=== PATIENT | female | born 1990 | race Hispanic/Latino ===

== ENCOUNTER 2018-02-17 18:17 | Emergency (ER) | payer SELFPAY ==
[2018-02-17 20:06] LABS: Urine Blood TRACE (NEG); Urine Glucose NEGATIVE (NEG); Urine Protein NEGATIVE (NEG); Urine Specific Gravity 1.015 (1.005-1.030)
[2018-02-17 20:06] LABS: Urine Specific Gravity 1.015 (1.005-1.030)
[2018-02-17 20:18] LABS: Absolute Lymphocytes (CBC) 2.7 K/uL (0.7-4.9); Absolute Monocytes 0.8 K/uL (0.1-1.3); Absolute Neutrophil 8.4 K/uL (1.8-8.0); Basophils % 0.3 % (0-1.3); Hematocrit 40.3 % (36.0-45.0); Lymphocytes % 22.2 % (15.3-44.8); MCH 31.8 pg (27.0-35.0); MCV 93.2 fL (80-100); MPV 7.9 fL (7.6-11.3); Monocytes % 6.3 % (3.3-12.3); RBC Red Blood Cell Count 4.32 M/uL (3.86-4.86)
[2018-02-17 20:38] LABS: Albumin 3.8 g/dL (3.4-5.0); Bilirubin Direct 0.1 mg/dL (0-0.2); Bilirubin Total 0.2 mg/dL (0.2-1.0); Potassium 3.6 mmol/L (3.5-5.1); Protein, Total 7.7 g/dL (6.4-8.2)
--- NOTE | 2018-02-17 21:46 | RAD REPORT ---
EXAM DESCRIPTION: CTAbdomen Pelvis W Contrast - 02/17/2018 9:38 pm CLINICAL HISTORY: Abdominal pain. left lower abdominal pain COMPARISON: No comparisons TECHNIQUE: Biphasic CT imaging of the abdomen and pelvis was performed with 100 ml non-ionic IV cont rast. All CT scans are performed using dose optimization technique as appropriate and may include automated exposure control or mA/KV adjustment according to patient size. FINDINGS: The lung bases are clear. The liver, spleen, pancreas, adrenal glands and kidneys are within normal limits. No bowel obstruction, free air, free fluid or abscess. The appendix is normal. No evidence of signi ficant lymphadenopathy. No suspicious bony findings. IMPRESSION: No acute intra-abdominal or pelvic finding.
--- NOTE | 2018-02-17 21:48 | RAD REPORT ---
EXAM DESCRIPTION: US - Pelvis Complete - 02/17/2018 9:38 pm CLINICAL HISTORY: pelvic pain Pelvic pain. COMPARISON: Transvaginal Study Probe dated 10/06/2016 FINDINGS: The uterus has a somewhat heterogenous appearance. The uterus measures 9.2 x 6.4 x 5.2 cm. The endometrial stripe measures 7 mm, normal. Both ovaries are normal in size, shape and echotexture. The right ovary measures 3.3 x 2.1 x 1.7 cm. The left ovary measures 2.8 x 2.6 x 2.5 cm. 3.6 x 1.5 cm right paraovarian cyst is present. No adne xal masses. Normal Doppler blood flow was demonstrated to both ovaries. Trace free fluid is seen about the fundus of the uterus. IMPRESSION: No acute abnormality is detected.
[2018-02-17] MEDS ORDERED: AZITHROMYCIN 250 MG TAB ONE (21:49)
[2018-02-17] MEDS ORDERED: CEFTRIAXONE 250 MG/VIAL ONE (21:49)
[2018-02-17] MEDS ORDERED: KETOROLAC 30 MG/ML INJ ONE (21:49)
--- NOTE | 2018-02-17 22:10 | EDPHYS ---
Physician Documentation [facility] Name: Twila Heath Age: 27 yrs Sex: Female : 1990 Arrival Date: 02/17/2018 Time: 18:19 Bed 19 Private MD: None, None ED Physician Hung Skaggs HPI: 02/17 19:38 This 27 yrs old Female presents to ER via Ambulatory with complaints of jmm Abdominal Pain. 19:38 The patient presents with abdominal pain in the lower abdomen. Onset: The jmm symptoms/episode began/occurred gradually, 3 day(s) ago. The symptoms radiate to left back. Associated signs and symptoms: Pertinent positives: vaginal discharge, Pertinent negatives: nausea and vomiting, diarrhea. This is a 27 year old female with no chronic medical conditions that presents to the ED with left lower abdominal pain for 3 days with radiation to the back, patient admits to increased vaginal discharge. Last LMP 1 month prior. Denies vomiting or diarrhea. . 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 - Social history:: Smoking status: Patient/guardian denies using tobacco. - Ebola Screening: : No symptoms or risks identified at this time. ROS: 19:38 Constitutional: Negative for fever, chills, and weight loss, Cardiovascular: Negative jmm for chest pain, palpitations, and edema, Respiratory: Negative for shortness of breath, cough, wheezing, and pleuritic chest pain. 19:38 Abdomen/GI: Positive for abdominal pain. 19:38 : Positive for pelvic pain, vaginal discharge. 19:38 All other systems are negative. Exam: 19:38 Head/Face: atraumatic. Eyes: EOMI, no conjunctival erythema appreciated ENT: Moist jmm Mucus Membranes Neck: Trachea midline, Supple Chest/axilla: Normal chest wall appearance and motion. Cardiovascular: Regular rate and rhythm. No edema appreciated Respiratory: Normal respirations, no respiratory distress appreciated 19:38 Constitutional: The patient appears in no acute distress, alert, awake. 19:38 Abdomen/GI: Inspection: abdomen appears normal, Bowel sounds: normal, Palpation: soft, mild abdominal tenderness, in the left lower quadrant. 19:38 Back: CVA tenderness, is absent, is noted bilaterally. 19:38 Musculoskeletal/extremity: ROM: intact in all extremities. 19:38 Skin: Appearance: Color: normal in color. 19:38 Neuro: Orientation: is normal, Mentation: is normal, Memory: is normal. 19:38 Psych: Behavior/mood is pleasant, cooperative. Vital Signs: 18:33 BP 116 / 70; Pulse 81; Resp 18 S; Temp 98.0(TE); Pulse Ox 100% on R/A; Weight 79.38 kg aa5 (R); Height 5 ft. 4 in. (162.56 cm) (R); Pain 5/10; 20:15 BP 113 / 70; Pulse 67; Resp 14; Pulse Ox 100% ; bp 20:45 BP 105 / 94; Pulse 76; Resp 16; Pulse Ox 100% ; bp 21:15 BP 110 / 76; Pulse 77; Resp 16 S; Pulse Ox 100% on R/A; cc3 22:10 BP 112 / 72; Pulse 74; Resp 14 S; Pulse Ox 100% on R/A; Pain 0/10; cc3 18:33 Body Mass Index 30.04 (79.38 kg, 162.56 cm) aa5 MDM: 19:36 Patient medically screened. [facility] 22:07 Data reviewed: vital signs, nurses notes. Data interpreted: Pulse oximetry: on room air jmm is 100 %. Interpretation: normal. Counseling: I had a detailed discussion with the patient and/or guardian regarding: the historical points, exam findings, and any diagnostic results supporting the discharge/admit diagnosis, radiology results, the need for outpatient follow up, to return to the emergency department if symptoms worsen or persist or if there are any questions or concerns that arise at home. Response to treatment: the patient's symptoms have markedly improved after treatment. 02/17 19:37 Order name: Basic Metabolic Panel; Complete Time: 20:47 [facility] 02/17 19:37 Order name: CBC with Diff; Complete Time: 20:19 [facility] 02/17 19:37 Order name: Creatinine for Radiology; Complete Time: 20:47 [facility] 02/17 19:37 Order name: Hepatic Function; Complete Time: 20:47 [facility] 02/17 19:37 Order name: Lipase; Complete Time: 20:47 [facility] 02/17 19:57 Order name: Urine Dipstick--Ancillary (enter results); Complete Time: 20:19 ms 02/17 19:37 Order name: US Pelvis Complete; Complete Time: 22:07 [facility] 02/17 19:37 Order name: CT Abd/Pelvis - W/Contrast; Complete Time: 22:07 [facility] 02/17 19:59 Order name: Urine --Ancillary (enter results); Complete Time: 20:19 ms 02/17 20:58 Order name: Wet Prep bp 02/17 20:58 Order name: GC (GONORR/CHLAMYDIA) Probe bp 02/17 20:59 Order name: Wet Prep; Complete Time: 21:33 EDMS 02/17 20:59 Order name: GC (Ramu/Chl) Probe CX/URE EDMA 02/17 19:37 Order name: IV Saline Lock; Complete Time: 20:02 [facility] 02/17 19:37 Order name: Labs collected and sent; Complete Time: 20:02 [facility] 02/17 19:38 Order name: Urine Dipstick-Ancillary (obtain specimen); Complete Time: 20:01 bp 02/17 19:38 Order name: Urine Test (obtain specimen); Complete Time: 20:01 bp Administered Medications: 21:40 Drug: Rocephin (cefTRIAXone) 250 mg Route: IM; Site: right deltoid; bp 22:00 Follow up: Response: No adverse reaction cc3 21:40 Drug: AZITHromycin 1 grams Route: PO; bp 22:00 Follow up: Response: No adverse reaction cc3 21:40 Drug: Ketorolac 30 mg Route: IVP; Site: right forearm; bp 22:00 Follow up: Response: No adverse reaction; Pain is decreased cc3 Disposition: 02/18 06:44 Co-signature as Attending Physician, Hung Skaggs MD I agree with the assessment and veronika plan of care. Disposition: 02/17/18 22:09 Discharged to Home. Impression: Unspecified ovarian cysts, Abdominal and pelvic pain. - Condition is Stable. - Discharge Instructions: Ovarian Cyst, Pelvic Pain, Female. - Prescriptions for Ibuprofen 800 mg Oral Tablet - take 1 tablet by ORAL route every 8 hours As needed take with food; 30 tablet. Tramadol 50 mg Oral Tablet - take 1 tablet by ORAL route every 8 hours as needed; 12 tablet. - Medication Reconciliation Form, Thank You Letter, Antibiotic Education, Prescription Opioid Use form. - Follow up: Nehemias Kearns MD; When: 2 - 3 days; Reason: Recheck today's complaints, Continuance of care, Re-evaluation by your physician. Signatures: Dispatcher [employer] EDMS Hung Skaggs MD MD cha Mickail, Joel, PA PA jmm Calderon, Audri, RN RN aa5 Rodolfo Middleton RN RN bp Rachel Fernandez cc3 Corrections: (The following items were deleted from the chart) 02/17 22:30 22:09 02/17/2018 22:09 Discharged to Home. Impression: Unspecified ovarian cysts; cc3 Abdominal and pelvic pain. Condition is Stable. Forms are Medication Reconciliation Form, Thank You Letter, Antibiotic Education, Prescription Opioid Use. Follow up: Nehemias Kearns; When: 2 - 3 days; Reason: Recheck today's complaints, Continuance of care, Re-evaluation by your physician. hank
--- NOTE | 2018-02-17 22:10 | ER ---
Nurse's Notes [facility] Name: Twila Heath Age: 27 yrs Sex: Female : 1990 Arrival Date: 02/17/2018 Time: 18:19 Bed 19 Private MD: None, None Diagnosis: Unspecified ovarian cysts;Abdominal and pelvic pain Presentation: 02/17 18:32 Presenting complaint: Patient states: lower abd pain radiating to left low back x 3 aa5 days ago. Pt also reports nausea and diarrhea,denies vomiting. Transition of care: patient was not received from another setting of care. Onset of symptoms was January 2018. Risk Assessment: Do you want to hurt yourself or someone else? Patient reports no desire to harm self or others. Initial Sepsis Screen: Does the patient meet any 2 criteria? No. Patient's initial sepsis screen is negative. Does the patient have a suspected source of infection? No. Patient's initial sepsis screen is negative. Care prior to arrival: None. 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 - Social history:: Smoking status: Patient/guardian denies using tobacco. - Ebola Screening: : No symptoms or risks identified at this time. Screenin:02 Abuse screen: Denies threats or abuse. Denies injuries from another. Nutritional bp screening: No deficits noted. Tuberculosis screening: No symptoms or risk factors identified. Fall Risk None identified. Assessment: 19:30 General: Appears in no apparent distress. comfortable, Behavior is calm, cooperative, bp appropriate for age. Pain: Complains of pain in left lower quadrant. Neuro: Level of Consciousness is awake, alert, obeys commands, Oriented to person, place, time, situation, Appropriate for age. Cardiovascular: No deficits noted. Respiratory: Airway is patent Respiratory effort is even, unlabored, Respiratory pattern is regular, symmetrical. GI: Bowel sounds present X 4 quads. Abd is soft X 4 quads Reports lower abdominal pain, diarrhea. : No signs and/or symptoms were reported regarding the genitourinary system. EENT: No deficits noted. Derm: No deficits noted. Musculoskeletal: Circulation, motion, and sensation intact. Range of motion: intact in all extremities. 21:25 Reassessment: PT TO CT WITH FINGERPRINT TECHNICIAN. bp 22:20 Reassessment: Patient appears in no apparent distress at this time. Patient and/or cc3 family updated on plan of care and expected duration. Pain level reassessed. Patient is alert, oriented x 3, equal unlabored respirations, skin warm/dry/pink. Patient discharged home by SUN Pantoja with prescription given. IV cannula removed and patient left ER vitally stable and ambulatory. Patient denies pain at this time. Patient states feeling better. Vital Signs: 18:33 BP 116 / 70; Pulse 81; Resp 18 S; Temp 98.0(TE); Pulse Ox 100% on R/A; Weight 79.38 kg aa5 (R); Height 5 ft. 4 in. (162.56 cm) (R); Pain 5/10; 20:15 BP 113 / 70; Pulse 67; Resp 14; Pulse Ox 100% ; bp 20:45 BP 105 / 94; Pulse 76; Resp 16; Pulse Ox 100% ; bp 21:15 BP 110 / 76; Pulse 77; Resp 16 S; Pulse Ox 100% on R/A; cc3 22:10 BP 112 / 72; Pulse 74; Resp 14 S; Pulse Ox 100% on R/A; Pain 0/10; cc3 18:33 Body Mass Index 30.04 (79.38 kg, 162.56 cm) aa5 ED Course: 18:19 Patient arrived in ED. mr 18:19 None, None is Private Physician. mr 18:32 Triage completed. aa5 18:32 Arm band placed on. aa5 19:13 Emmanuel Pantoja PA is PHCP. [facility] 19:13 Hung Skaggs MD is Attending Physician. [facility] 19:16 Rodolfo Middleton, RN is Primary Nurse. bp 20:02 Patient has correct armband on for positive identification. Placed in gown. Bed in low bp position. Call light in reach. Side rails up X2. 20:02 Inserted saline lock: 22 gauge in right forearm, using aseptic technique. Blood bp collected. 20:06 Radiology exam delayed due to pelvic exam. cy 20:49 Ultrasound completed. Patient tolerated well. Notified DIRECTOR CAREER/SUN michel. cy 21:24 Wet Prep Sent. bp 21:24 GC (GONORR/CHLAMYDIA) Probe Sent. bp 21:38 US Pelvis Complete In Process Unspecified. EDMS 21:38 CT Abd/Pelvis - W/Contrast In Process Unspecified. EDMS 21:38 CT completed. Patient tolerated procedure well. Patient moved back from CT. kc3 22:08 Nehemias Kearns MD is Referral Physician. [facility] 22:20 No provider procedures requiring assistance completed. IV discontinued, intact, cc3 bleeding controlled, No redness/swelling at site. Pressure dressing applied. Administered Medications: 21:40 Drug: Rocephin (cefTRIAXone) 250 mg Route: IM; Site: right deltoid; bp 22:00 Follow up: Response: No adverse reaction cc3 21:40 Drug: AZITHromycin 1 grams Route: PO; bp 22:00 Follow up: Response: No adverse reaction cc3 21:40 Drug: Ketorolac 30 mg Route: IVP; Site: right forearm; bp 22:00 Follow up: Response: No adverse reaction; Pain is decreased cc3 Outcome: 22:09 Discharge ordered by . jmm 22:20 Discharged to home ambulatory. cc3 22:20 Condition: stable 22:20 Discharge instructions given to patient, Instructed on discharge instructions, follow up and referral plans. medication usage, Demonstrated understanding of instructions, follow-up care, medications, Prescriptions given X 2. 22:30 Patient left the ED. cc3 Signatures: Dispatcher [employer] EDMS Emmanuel Pantoja PA PA jmm Rivera, Maria mr Calderon, Audri, RN RN aa5 Rodolfo Middleton RN RN bp Yong, Chheannith cy Campbell, Kim kc3 Rachel Fernandez cc3
[2018-02-17 23:46] VITALS: TEMP 98; O2SAT 100
[2018-02-17 23:51] VITALS: BP 112/72
[2018-02-21 10:56] LABS: C.trachomatis RNA,TMA Not Detected (Not Detected)
== END 2018-02-17 22:30 | disposition home or self-care (01) ==
LOC: ER 18:17
DX: N83.209 Unspecified ovarian cyst, unspecified side (principal)
CPT/HCPCS: 36415; 74177; 76856; 80048; 80076; 81003; 81025; 83690; 85025; 87210; 87490; 87590; 96372; 96374; 99284; J0696; Q9967

== ENCOUNTER 2019-02-16 06:06 | Emergency (ER) | payer OTHER ==
[2019-02-16] MEDS ORDERED: AMOX/K CLAV 875 MG TAB ONE (06:36)
--- NOTE | 2019-02-16 06:39 | ER ---
Nurse's Notes [facility] Name: Twila Heath Age: 28 yrs Sex: Female : 1990 Arrival Date: 02/16/2019 Time: 06:08 Bed 14 Private MD: Diagnosis: Acute tonsillitis; related conditions, unspecified, second trimester Presentation: 02/16 06:15 Presenting complaint: Patient states: cough, sore throat, \T\ nupur ear pain for past aa1 several days. Transition of care: patient was not received from another setting of care. Onset of symptoms was February 11, 2019. Risk Assessment: Do you want to hurt yourself or someone else? Patient reports no desire to harm self or others. Initial Sepsis Screen: Does the patient meet any 2 criteria? No. Patient's initial sepsis screen is negative. Does the patient have a suspected source of infection? No. Patient's initial sepsis screen is negative. Care prior to arrival: None. 06:15 Method Of Arrival: Ambulatory aa1 06:15 Acuity: CLINT 4 aa1 Triage Assessment: 06:15 General: Appears in no apparent distress. comfortable, Behavior is calm, cooperative, aa1 appropriate for age. Historical: - Allergies: 06:27 No Known Allergies; aa1 - Home Meds: 06:27 Vitamin Oral tab 1 tab once daily [Active]; aa1 - PMHx: 06:27 None; aa1 - PSHx: 06:27 None; aa1 - Immunization history:: Flu vaccine is not up to date. - Social history:: Smoking status: Patient/guardian denies using tobacco. - Ebola Screening: : Patient denies exposure to infectious person Patient denies travel to an Ebola-affected area in the 21 days before illness onset. Screenin:49 Abuse screen: Denies threats or abuse. Nutritional screening: No deficits noted. jb4 Tuberculosis screening: No symptoms or risk factors identified. Fall Risk None identified. Assessment: 06:40 General: Appears in no apparent distress. comfortable, Behavior is calm, cooperative, jb4 appropriate for age. Pain: Complains of pain in throat. Pain does not radiate. Pain currently is 7 out of 10 on a pain scale. Neuro: Level of Consciousness is awake, alert, obeys commands, Oriented to person, place, time, situation. Cardiovascular: Patient's skin is warm and dry. Respiratory: Airway is patent Respiratory effort is even, unlabored, Respiratory pattern is regular, symmetrical. GI: No deficits noted. No signs and/or symptoms were reported involving the gastrointestinal system. : No deficits noted. No signs and/or symptoms were reported regarding the genitourinary system. EENT: Reports pain in throat. Derm: Skin is intact, Skin is pink, warm \T\ dry. Musculoskeletal: Circulation, motion, and sensation intact. Range of motion: intact in all extremities. 06:49 Reassessment: Patient appears in no apparent distress at this time. Patient and/or jb4 family updated on plan of care and expected duration. Pain level reassessed. Patient is alert, oriented x 3, equal unlabored respirations, skin warm/dry/pink. PT verbalized understanding of d/c and follow up instructions. Ambulated out of ED with significant other. Vital Signs: 06:15 BP 107 / 65; Pulse 94; Resp 16; Temp 97.8; Pulse Ox 99% ; Weight 85.73 kg; Height 5 ft. aa1 4 in. (162.56 cm); Pain 7/10; 06:15 Body Mass Index 32.44 (85.73 kg, 162.56 cm) aa1 Vitals: 06:46 Heart Tones 150. jb4 ED Course: 06:08 Patient arrived in ED. ds1 06:10 Hung Skaggs MD is Attending Physician. veronika 06:15 Arm band placed on right wrist. Patient placed in an exam room, on a stretcher. aa1 06:22 Triage completed. aa1 06:31 Alfa Adame RN is Primary Nurse. jb4 06:37 Thom Whyte MD is Referral Physician. veronika 06:49 Patient has correct armband on for positive identification. Bed in low position. Call jb4 light in reach. Side rails up X 1. Pulse ox on. NIBP on. 06:49 No provider procedures requiring assistance completed. Patient did not have IV access jb4 during this emergency room visit. Administered Medications: 06:37 Drug: Augmentin 875 mg Route: PO; jb4 06:50 Follow up: Response: No adverse reaction jb4 Outcome: 06:38 Discharge ordered by . veronika 06:49 Discharged to home ambulatory, with significant other. jb4 06:49 Condition: stable 06:49 Discharge instructions given to patient, significant other, Instructed on discharge instructions, follow up and referral plans. medication usage, Demonstrated understanding of instructions, follow-up care, medications, Prescriptions given X 2. 06:50 Patient left the ED. jb4 Signatures: Rosalba Arteaga, RN RN aa1 Hung Skaggs MD MD cha Sanford, Demi ds1 Alfa Adame RN RN jb4
--- NOTE | 2019-02-16 06:39 | EDPHYS ---
Physician Documentation [facility] Name: Twila Heath Age: 28 yrs Sex: Female : 1990 Arrival Date: 02/16/2019 Time: 06:08 Bed 14 Private MD: SHELBY Physician Hung Skaggs HPI: 02/16 06:28 This 28 yrs old Female presents to ER via Ambulatory with complaints of Ear veronika Pain, Sore Throat. 06:28 The patient presents with pain, swelling, tenderness. The complaints affect the chin. veronika Associated signs and symptoms: The patient has no apparent associated signs or symptoms. Historical: - Allergies: 06: No Known Allergies; aa1 - Home Meds: 06: Vitamin Oral tab 1 tab once daily [Active]; aa1 - PMHx: : None; aa1 - PSHx: : None; aa1 - Immunization history:: Flu vaccine is not up to date. - Social history:: Smoking status: Patient/guardian denies using tobacco. - Ebola Screening: : Patient denies exposure to infectious person Patient denies travel to an Ebola-affected area in the 21 days before illness onset. ROS: 06:29 Constitutional: Negative for fever, chills, and weight loss, Eyes: Negative for injury, veronika pain, redness, and discharge, Neck: Negative for injury, pain, and swelling, Cardiovascular: Negative for chest pain, palpitations, and edema, Respiratory: Negative for shortness of breath, cough, wheezing, and pleuritic chest pain, Back: Negative for injury and pain, : Negative for injury, bleeding, discharge, and swelling, MS/Extremity: Negative for injury and deformity, Skin: Negative for injury, rash, and discoloration, Neuro: Negative for headache, weakness, numbness, tingling, and seizure, Psych: Negative for depression, anxiety, suicide ideation, homicidal ideation, and hallucinations, Allergy/Immunology: Negative for hives, rash, and allergies, Endocrine: Negative for neck swelling, polydipsia, polyuria, polyphagia, and marked weight changes, Hematologic/Lymphatic: Negative for swollen nodes, abnormal bleeding, and unusual bruising. 06:29 ENT: Positive for sore throat. Exam: 06:29 Constitutional: This is a well developed, well nourished patient who is awake, alert, veronika and in no acute distress. Head/Face: Normocephalic, atraumatic. Eyes: Pupils equal round and reactive to light, extra-ocular motions intact. Lids and lashes normal. Conjunctiva and sclera are non-icteric and not injected. Cornea within normal limits. Periorbital areas with no swelling, redness, or edema. Neck: Trachea midline, no thyromegaly or masses palpated, and no cervical lymphadenopathy. Supple, full range of motion without nuchal rigidity, or vertebral point tenderness. No Meningismus. Chest/axilla: Normal chest wall appearance and motion. Nontender with no deformity. No lesions are appreciated. Cardiovascular: Regular rate and rhythm with a normal S1 and S2. No gallops, murmurs, or rubs. Normal PMI, no JVD. No pulse deficits. Respiratory: Lungs have equal breath sounds bilaterally, clear to auscultation and percussion. No rales, rhonchi or wheezes noted. No increased work of breathing, no retractions or nasal flaring. Abdomen/GI: Soft, non-tender, with normal bowel sounds. No distension or tympany. No guarding or rebound. No evidence of tenderness throughout. Back: No spinal tenderness. No costovertebral tenderness. Full range of motion. Skin: Warm, dry with normal turgor. Normal color with no rashes, no lesions, and no evidence of cellulitis. MS/ Extremity: Pulses equal, no cyanosis. Neurovascular intact. Full, normal range of motion. Neuro: Awake and alert, GCS 15, oriented to person, place, time, and situation. Cranial nerves II-XII grossly intact. Motor strength 5/5 in all extremities. Sensory grossly intact. Cerebellar exam normal. Normal gait. Psych: Awake, alert, with orientation to person, place and time. Behavior, mood, and affect are within normal limits. Vital Signs: 06:15 BP 107 / 65; Pulse 94; Resp 16; Temp 97.8; Pulse Ox 99% ; Weight 85.73 kg; Height 5 ft. aa1 4 in. (162.56 cm); Pain 7/10; 06:15 Body Mass Index 32.44 (85.73 kg, 162.56 cm) aa1 MDM: 06:11 Patient medically screened. [facility] 06:36 Data reviewed: vital signs, nurses notes. [facility] 02/16 06:28 Order name: FHT's; Complete Time: 06:44 [facility] Administered Medications: 06:37 Drug: Augmentin 875 mg Route: PO; jb4 06:50 Follow up: Response: No adverse reaction jb4 Disposition: 02/16/19 06:38 Discharged to Home. Impression: Acute tonsillitis, related conditions, unspecified, second trimester. - Condition is Stable. - Discharge Instructions: Tonsillitis, Tonsillitis, [id number]. - Prescriptions for Augmentin 875- 125 mg Oral Tablet - take 1 tablet by ORAL route every 12 hours for 10 days; 20 tablet. Benadryl 25 mg Oral Capsule - take 1 capsule by ORAL route every 6 hours As needed; 30 tablet. - Medication Reconciliation Form, Thank You Letter, Antibiotic Education, Prescription Opioid Use form. - Follow up: Private Physician; When: 2 - 3 days; Reason: Recheck today's complaints, Continuance of care, Re-evaluation by your physician. Follow up: Thom Whyte MD; When: 2 - 3 days; Reason: Recheck today's complaints, Continuance of care, Re-evaluation by your physician. - Problem is new. - Symptoms have improved. Signatures: Rosalba Arteaga RN RN aa1 Hung Skaggs MD MD cha Bryson, James, RN RN jb4 Corrections: (The following items were deleted from the chart) 06:50 06:38 02/16/2019 06:38 Discharged to Home. Impression: Acute tonsillitis; jb4 related conditions, unspecified, second trimester. Condition is Stable. Forms are Medication Reconciliation Form, Thank You Letter, Antibiotic Education, Prescription Opioid Use. Follow up: Private Physician; When: 2 - 3 days; Reason: Recheck today's complaints, Continuance of care, Re-evaluation by your physician. Follow up: Thom Whyte; When: 2 - 3 days; Reason: Recheck today's complaints, Continuance of care, Re-evaluation by your physician. Problem is new. Symptoms have improved. [facility]
[2019-02-16 07:05] VITALS: BP 107/65; TEMP 97.8; O2SAT 99
== END 2019-02-16 06:50 | disposition home or self-care (01) ==
LOC: ER 06:06
DX: O26.892 Other specified pregnancy related conditions, second trimester (principal); J03.90 Acute tonsillitis, unspecified
CPT/HCPCS: 99284

== ENCOUNTER 2019-06-13 04:04 | Inpatient (IN) | payer OTHER ==
--- OUTSIDE RECORDS SUMMARY | 2019-06-13 04:07 | XMS REPORT ---
:1990 [facility] Address [address] [place] [address] Dr. John [address] [place] [id number] Care Team Providers Name Role Phone Unavailable Unavailable Unavailable Problems This patient has no known problems. Allergies, Adverse Reactions, Alerts This patient has no known allergies or adverse reactions. Medications This patient has no known medications.
[2019-06-13] MEDS ORDERED: BUTORPHANOL 1 MG/ML INJ IV PRN (04:24)
[2019-06-13] MEDS ORDERED: Ringers Lactate 1,000 ML IV PRN (04:24)
[2019-06-13] MEDS ORDERED: METHYLERGONOVINE 0.2MG/ML AMP IM PRN (04:24)
[2019-06-13] MEDS ORDERED: CARBOPROST TROME 250 MCG/ML IM PRN (04:24)
[2019-06-13] MEDS ORDERED: PROMETHAZINE INJ 25 MG/ML AMP IM PRN (04:24)
[2019-06-13] MEDS ORDERED: MEPERIDINE HCL 25 MG/0.5 ML IV PRN (04:24)
[2019-06-13 04:38] VITALS: BMI 34.3
[2019-06-13] MEDS ORDERED: Ringers Lactate 1,000 ML IV SCH (05:00)
[2019-06-13] MEDS ORDERED: OXYTOCIN/LR 20 UNIT/1,000 ML BAG IV SCH ×2 (05:00→12:00)
[2019-06-13 05:12] LABS: Urine Appearance CLEAR; Urine Bilirubin NEGATIVE (NEG); Urine Blood NEGATIVE (NEG); Urine Color YELLOW; Urine Glucose NEGATIVE (NEG); Urine Protein NEGATIVE (NEG); Urine Specific Gravity 1.025 (1.005-1.030); Urine Urobilinogen 0.2 mg/dL (0.2-1.0)
[2019-06-13 05:14] LABS: Urine Microscopic Reflex ORDER UMIC
[2019-06-13 05:15] LABS: Absolute Lymphocytes (CBC) 2.9 K/uL (0.7-4.9); Basophils % 0.3 % (0-1.3); Hematocrit 34.6 % (36.0-45.0); Lymphocytes % 31.8 % (15.3-44.8); MPV 8.2 fL (7.6-11.3); RBC Red Blood Cell Count 3.92 M/uL (3.86-4.86)
[2019-06-13 05:40] LABS: Urine Bacteria 20-50 /HPF (<20); Urine Culture Reflex Order REFLEXED; Urine RBC <5 /HPF (NONE SEEN)
[2019-06-13 05:41] LABS: Urine Mucus 1+ /HPF (NONE SEEN)
[2019-06-13] MEDS ORDERED: ROPIVACAINE HCL 100 ML IV PRN (06:57)
[2019-06-13] MEDS ORDERED: ROPIVACAINE HCL 0.2% 20ML AMP IV ONE (06:58)
[2019-06-13] MEDS ORDERED: FENTANYL CITR 100 MCG/2 ML IV ONE (06:59)
[2019-06-13] MEDS ORDERED: LIDOCAINE 1% 20 ML MDV ONE (08:20)
[2019-06-13] MEDS ORDERED: Oxycodone HCl/Acetaminophen 1 TAB TAB PO PRN ×2 (11:48)
[2019-06-13] MEDS ORDERED: ACETAMINOPHEN 500 MG TAB PO PRN (11:48)
[2019-06-13] MEDS ORDERED: BISACODYL 10 MG RECTAL SUPP RECT PRN (11:48)
[2019-06-13] MEDS ORDERED: DIPHENHYDRAMINE 25 MG TAB/CAP PO PRN (11:48)
[2019-06-13] MEDS ORDERED: DOCUSATE NA/SENNA CONC 1 TAB PO PRN (11:48)
--- NOTE | 2019-06-13 12:12 | PREOPHP ---
Date of Admission: 06/13/2019 28-year-old 5, para 3, AB1, 39 weeks for induction. Patient is 3.5 cm, 50% effaced, vertex, -1 station. Rupture of membranes, clear fluid. Will be requesting epidural but is not even uncomfor table at this point. Anticipate rather rapid delivery once we get going. Full labor talk given to p atient and family. YESICA/SARATH Voice ID: [id number]
[2019-06-13] MEDS: IBUPROFEN 200 MG TAB PO PRN (14:35)
[2019-06-13 22:30] LABS: RPR (Rapid Plasma Reagin) NON-REACT (NON-REACT)
[2019-06-14] MEDS: IBUPROFEN 200 MG TAB PO PRN ×2 (04:10→12:12)
--- NOTE | 2019-06-14 07:50 | DS ---
Hospital Course: This is a 28-year-old 5, para 3, 39 weeks gestation, uneventful delivery of a 6 pounds, 5 pounds female, Apgars 9 and 9. No episiotomy. No laceration. Shabazz delivery of the placenta, which was examined and noted to be intact. 250 mL blood loss. Rh positive, immune to Rub renny. Negative beta strep screen. ; afebrile, ambulating and voiding. Lochia is normal. Patient requested tramadol on dismissal, we will give her 15 tablets. She has not had her Tdap immu nization during the . This has been discussed numerous times. She is offered the immunizat ion before she leaves if she chooses. No post-epidural problems. No complaints. Final Diagnoses: Term intrauterine at 39 weeks, vaginal delivery. Epidural anesthesia. I mmunization, Tdap offered. YESICA/SARATH Voice ID: [id number] Report ID: [id number]
--- NOTE | 2019-06-14 07:50 | OP ---
Surgeon: Thom Whyte MD 28-year-old 5, para 3, AB1, 39 weeks gestation, 3 to 3.5 cm with rupture of membranes this mo rning. Clear fluid. Patient went to an active labor pattern. At approximately 4.5 to 5 received ep idural anesthesia, which gave excellent effect during remainder of labor and delivery. Short second stage of 15 minutes or less. Spontaneous vaginal delivery of an estimated 6 pounds plus female s 9 and 9. No episiotomy. No lacerations worthy of Schultze suturing, Shabazz delivery of the placen ta. At 10 to 12 minutes after delivery, uterus contracted down well with IV drip Pitocin. Estimated blood loss 250 cc or less. Patient tolerated all procedures well. Rh positive, immune to Rubella. Negative beta strep screen. Final Diagnoses: Term intrauterine . Labor induction, vaginal delivery, epidural anesthesi a. YESICA/SARATH Voice ID: [id number] Report ID: [id number]
[2019-06-14 12:05] VITALS: BP 104/63; TEMP 97.3
[2019-06-14] MEDS ORDERED: Tdap (Diph,Pertuss(Acell),Tet Vac) 0.5 ML SYR IMVAC ONE ×2 (13:06→13:15)
[2019-06-16 04:06] LABS: HBsAG Nonreactive (Nonreactive)
== END 2019-06-14 13:40 | disposition home or self-care (01) | DRG 998 ==
LOC: 2ND-WC 04:04
PROVIDERS: ADMIT Specialist; ATTEND Specialist
PROC: 10E0XZZ Delivery of Products of Conception, External Approach (ICD-10-PCS; principal; 2019-06-13)
PROC: 10907ZC Drainage of Amniotic Fluid, Therapeutic from Products of Conception, Via Natural or Artificial Opening (ICD-10-PCS; 2019-06-13)
PROC: 00HU33Z Insertion of Infusion Device into Spinal Canal, Percutaneous Approach (ICD-10-PCS; 2019-06-13)
DX: O80 Encounter for full-term uncomplicated delivery (principal)
CPT/HCPCS: 36415; 81003; 81015; 85025; 86592; 86901; 87086; 87088; 87340; 90471; 90715; J2210; J2590; J2795; J3010; J7120

== ENCOUNTER 2021-09-03 09:17 | Emergency (ER) | payer OTHER ==
--- OUTSIDE RECORDS SUMMARY | 2021-09-03 09:19 | XMS REPORT | Continuity of Care Document ---
:1990 Author Organization [facility] t Address [address] [place] [address] Care Team Providers Name Role Phone ANENE Attending Clinician Unavailable DICLEMENTE Admitting Clinician Unavailable Payers Payer Name Policy Type Policy Number Effective Date Expiration Date [facility] [id number] 2019 [facility] MEDICAID 00:00:00 Problems This patient has no known problems. Allergies, Adverse Reactions, Alerts Allergy Allergy Status Severity Reaction(s) Onset Inactive Treating Comm ents Source Name Type Date Date Clinician NO KNOWN Drug Active [facility] ALLERGIE Class ity [facility] Medications This patient has no known medications. Procedures This patient has no known procedures. Encounters Start End Encounter Admission Attending Care Care Encounter Source Date/Time Date/Time Type Type Clinicians Facility Department ID 2021-03-19 Emergency [facility] [id number] [facility] 18:22:52 [facility] 2021-03-19 Outpatient P [facility] [id number] [facility] 17:49:20 [facility] 2019-11-29 2019-11-29 [id number] 15:20:00 15:20:00 EMMANUEL [facility] 2019-11-29 2019-11-29 Outpatient R [facility] [id number] Univers 08:00:00 08:00:00 [facility] 2019-11-15 2019-11-15 Outpatient R [facility] [id number] Univers 11:20:00 11:20:00 [id number] [facility] 2019-11-15 2019-11-15 [facility] [id number] Univers 11:20:00 11:20:00 EMMANUEL [facility] Results This patient has no known results.
[2021-09-03] MEDS ORDERED: ACETAMINOPHEN 500 MG TAB ONE (10:15)
--- NOTE | 2021-09-03 10:44 | EDPHYS ---
Physician Documentation [facility] Name: Twila Heath Age: 30 yrs Sex: Female : 1990 Arrival Date: 09/03/2021 Time: 09:17 Bed 23 Private MD: ED Physician Hung Skaggs HPI: 09/03 10:24 This 30 yrs old Female presents to ER via Ambulatory with complaints of Sore jr8 Throat, Congestion. 10:24 The patient presents with sore throat. The patient describes throat pain as constant. jr8 Onset: The symptoms/episode began/occurred acutely, 2 day(s) ago. Severity of symptoms: At their worst the symptoms were mild, in the emergency department the symptoms are unchanged. Modifying factors: The symptoms are alleviated by nothing, the symptoms are aggravated by swallowing. Associated signs and symptoms: Pertinent positives: chills, cough, fever, flu-like symptoms, headache. The patient has not experienced similar symptoms in the past. The patient has not recently seen a physician. Historical: - Allergies: 09:40 No Known Allergies; ll1 - PMHx: 09:40 None; ll1 - PSHx: 09:40 None; ll1 - Immunization history:: Client reports having NOT received the Covid vaccine. Flu vaccine status is unknown. - Social history:: Smoking status: Patient reports the use of cigarette tobacco products, denies chronic smoking, but will smoke occasionally. ROS: 10:24 Eyes: Negative for injury, pain, redness, and discharge, Neck: Negative for injury, jr8 pain, and swelling, Cardiovascular: Negative for chest pain, palpitations, and edema, Abdomen/GI: Negative for abdominal pain, nausea, vomiting, diarrhea, and constipation, Back: Negative for injury and pain, MS/Extremity: Negative for injury and deformity, Skin: Negative for injury, rash, and discoloration. 10:24 Constitutional: Positive for body aches, chills, fever. 10:24 ENT: Positive for sore throat. 10:24 Respiratory: Positive for cough, Negative for shortness of breath, sputum production, wheezing. 10:24 Neuro: Positive for headache. 10:24 All other systems are negative. Exam: 10:24 Constitutional: This is a well developed, well nourished patient who is awake, alert, jr8 and in no acute distress. ENT: Nares patent. No nasal discharge, no septal abnormalities noted. Tympanic membranes are normal and external auditory canals are clear. Oropharynx with mild redness. No swelling, or masses, exudates, or evidence of obstruction, uvula midline. Mucous membranes moist. Neck: Trachea midline, no thyromegaly or masses palpated, and no cervical lymphadenopathy. Supple, full range of motion without nuchal rigidity, or vertebral point tenderness. No Meningismus. Cardiovascular: Regular rate and rhythm with a normal S1 and S2. No gallops, murmurs, or rubs. Normal PMI, no JVD. No pulse deficits. Respiratory: Lungs have equal breath sounds bilaterally, clear to auscultation and percussion. No rales, rhonchi or wheezes noted. No increased work of breathing, no retractions or nasal flaring. Abdomen/GI: Soft, non-tender, with normal bowel sounds. No distension or tympany. No guarding or rebound. No evidence of tenderness throughout. Skin: Warm, dry with normal turgor. Normal color with no rashes, no lesions, and no evidence of cellulitis. MS/ Extremity: Pulses equal, no cyanosis. Neurovascular intact. Full, normal range of motion. Neuro: Awake and alert, GCS 15, oriented to person, place, time, and situation. Motor strength 5/5 in all extremities. Sensory grossly intact. Vital Signs: 09:38 BP 140 / 85; Pulse 129; Resp 17; Temp 100.9; Pulse Ox 98% on R/A; Weight 79.38 kg; ll1 Height 5 ft. 4 in. (162.56 cm); Pain 5/10; 11:02 BP 130 / 76; Pulse 107; Resp 18; Temp 99.9; Pulse Ox 100% on R/A; ph 09:38 Body Mass Index 30.04 (79.38 kg, 162.56 cm) ll1 MDM: 09:58 Patient medically screened. jr8 10:42 Data reviewed: vital signs, nurses notes, lab test result(s), Flu: positive. Data jr8 interpreted: Pulse oximetry: on room air is 98 %. Interpretation: normal. Counseling: I had a detailed discussion with the patient and/or guardian regarding: the historical points, exam findings, and any diagnostic results supporting the discharge/admit diagnosis, lab results, the need for outpatient follow up, a family practitioner, to return to the emergency department if symptoms worsen or persist or if there are any questions or concerns that arise at home. Response to treatment: the patient's symptoms have mildly improved after treatment. 09/03 09:54 Order name: Strep; Complete Time: 10:40 jr8 09/03 09:54 Order name: Influenza Screen (a \T\ B); Complete Time: 10:40 jr8 09/03 10:39 Order name: Throat Culture EDMS Administered Medications: 10:25 Drug: Tylenol 1000 mg Route: PO; ph 11:02 Follow up: Response: No adverse reaction; Temperature is decreased ph Disposition: 18:45 Co-signature as Attending Physician, Hung Skaggs MD I agree with the assessment and veronika plan of care. Disposition Summary: 09/03/21 10:43 Discharge Ordered Location: Home jr Problem: new jr8 Symptoms: have improved jr8 Condition: Stable jr8 Diagnosis - Influenza due to identified novel influenza A virus jr8 Followup: jr8 - With: Private Physician - When: 1 week - Reason: Recheck today's complaints, Continuance of care, Re-evaluation by your physician Discharge Instructions: - Discharge Summary Sheet jr8 - Influenza, Adult, [id number] jr8 Forms: - Medication Reconciliation Form jr8 - Thank You Letter jr8 - Antibiotic Education jr8 - Prescription Opioid Use jr8 - Work release form ph Prescriptions: - promethazine-DM 6.25-15 mg/5 mL Oral syrup - take 5 milliliter by ORAL route every 4-6 hours As needed as needed, not to jr8 exceed 30 mL in 24 hours; 120 milliliter; Refills: 0, Product Selection Permitted - Tessalon Perles 100 mg Oral Capsule - take 1 capsule by ORAL route every 8 hours As needed; 15 capsule; Refills: 0, jr8 Product Selection Permitted - Tamiflu 75 mg Oral Capsule - take 1 tablet by ORAL route every 12 hours for 5 days; 10 tablet; Refills: 0, jr8 Product Selection Permitted Signatures: Dispatcher [employer] Hung Lawrence MD MD cha Roszak, Josh, PA PA jr8 Malathi Frias RN RN ph Quinn Howell RN RN ll1
--- NOTE | 2021-09-03 10:44 | ER ---
Nurse's Notes [facility] Name: Twila Heath Age: 30 yrs Sex: Female : 1990 Arrival Date: 09/03/2021 Time: 09:17 Bed 23 Private MD: Diagnosis: Influenza due to identified novel influenza A virus Presentation: 09/03 09:38 Chief complaint: Patient states: Body aches, sore throat, congestion, fever, body ll1 aches, SANCHES since Tuesday. Coronavirus screen: Vaccine status: Patient reports being unvaccinated. Client denies travel out of the [place] in the last 14 days. chills, congestion, cough unrelated to allergies, fatigue, fever, headache, muscle pain, runny nose, shaking with chills, shortness of breath, sore throat, Client presents with at least one sign or symptom that may indicate coronavirus-19. Standard/surgical mask placed on the client. Ebola Screen: Patient denies travel to an Ebola-affected area in the 21 days before illness onset. Initial Sepsis Screen: Does the patient meet any 2 criteria? HR > 90 bpm. No. Patient's initial sepsis screen is negative. Does the patient have a suspected source of infection? Yes: Productive cough/pneumonia. Risk Assessment: Do you want to hurt yourself or someone else? Patient reports no desire to harm self or others. Onset of symptoms was September 01, 2021. 09:38 Method Of Arrival: Ambulatory ll1 09:38 Acuity: CLINT 4 ll1 Triage Assessment: 09:41 General: Appears ill, Behavior is calm, cooperative, appropriate for age. Pain: ll1 Complains of pain in back Quality of pain is described as aching. EENT: Reports nasal congestion pain when swallowing. Neuro: Reports headache. Respiratory: Reports cough that is. Musculoskeletal: Reports pain in body aches. Historical: - Allergies: 09:40 No Known Allergies; ll1 - PMHx: 09:40 None; ll1 - PSHx: 09:40 None; ll1 - Immunization history:: Client reports having NOT received the Covid vaccine. Flu vaccine status is unknown. - Social history:: Smoking status: Patient reports the use of cigarette tobacco products, denies chronic smoking, but will smoke occasionally. Screenin:35 Abuse screen: Denies threats or abuse. Denies injuries from another. Nutritional ph screening: No deficits noted. Tuberculosis screening: No symptoms or risk factors identified. Fall Risk None identified. Assessment: 10:33 General: Appears in no apparent distress. comfortable, Behavior is calm, cooperative, ph appropriate for age, Reports fever for 12-24 hours. Pain: Complains of pain in throat, body aches. Neuro: Level of Consciousness is awake, alert, obeys commands, Oriented to person, place, time, situation. Cardiovascular: Capillary refill < 3 seconds in bilateral fingers Patient's skin is warm and dry. Respiratory: Reports cough that is pain with cough Airway is patent Respiratory effort is even, unlabored, Respiratory pattern is regular, symmetrical, Breath sounds are clear bilaterally. GI: No signs and/or symptoms were reported involving the gastrointestinal system. EENT: Throat is reddened has enlarged tonsils on left Reports pain when swallowing. Derm: Skin is intact, is healthy with good turgor, Skin is pink, warm \T\ dry. Musculoskeletal: Circulation, motion, and sensation intact. Range of motion: intact in all extremities. Vital Signs: 09:38 BP 140 / 85; Pulse 129; Resp 17; Temp 100.9; Pulse Ox 98% on R/A; Weight 79.38 kg; ll1 Height 5 ft. 4 in. (162.56 cm); Pain 5/10; 11:02 BP 130 / 76; Pulse 107; Resp 18; Temp 99.9; Pulse Ox 100% on R/A; ph 09:38 Body Mass Index 30.04 (79.38 kg, 162.56 cm) ll1 ED Course: 09:17 Patient arrived in ED. ds1 09:40 Triage completed. ll1 09:41 Arm band placed on Patient placed in an exam room, on a stretcher. ll1 09:53 Peterson Temple PA is PHCP. jr8 09:53 Hung Skaggs MD is Attending Physician. jr8 10:09 Malathi Frias, MADHAVI is Primary Nurse. ph 10:35 Patient has correct armband on for positive identification. Bed in low position. Call ph light in reach. Side rails up X 1. Pulse ox on. NIBP on. Door closed. Noise minimized. Lights dimmed. Warm blanket given. 11:02 No provider procedures requiring assistance completed. Patient did not have IV access ph during this emergency room visit. Administered Medications: 10:25 Drug: Tylenol 1000 mg Route: PO; ph 11:02 Follow up: Response: No adverse reaction; Temperature is decreased ph Outcome: 10:43 Discharge ordered by MD. frey 11:03 Discharged to home ambulatory. ph 11:03 Condition: good 11:03 Discharge instructions given to patient, Instructed on discharge instructions, follow up and referral plans. medication usage, Demonstrated understanding of instructions, follow-up care, medications, Prescriptions given X 3. 11:03 Patient left the ED. ph Signatures: Sylvia Caballero ds1 Peterson Temple PA PA jr8 Malathi Frias RN RN ph Quinn Howell RN RN ll1
[2021-09-03 13:18] VITALS: BP 130/76; TEMP 99.9; O2SAT 100
== END 2021-09-03 11:03 | disposition home or self-care (01) ==
LOC: ER 09:17
DX: J10.1 Influenza due to other identified influenza virus with other respiratory manifestations (principal); F17.210 Nicotine dependence, cigarettes, uncomplicated
CPT/HCPCS: 87070; 87081; 87804; 99283

== ENCOUNTER 2022-03-28 02:18 | Emergency (ER) | payer OTHER ==
--- OUTSIDE RECORDS SUMMARY | 2022-03-28 02:22 | XMS REPORT | Continuity of Care Document ---
:[address] [facility] t Address [address] [place] [address] Dr. Peace[address] [place] [address] Care Team Providers Name Role Phone LISANDRA Attending Clinician Unavailable Scarlett Heard Attending Clinician [phone] EMMANUEL GUILLORY Attending Clinician Unavailable LIA JORGE Admitting Clinician Unavailable LISANDRA Admitting Clinician Unavailable Payers Payer Name Policy Type Policy Number Effective Date Expiration Date [facility] [id number] 2019 CHOICE MEDICAID 00:00:00 Problems This patient has no known problems. Allergies, Adverse Reactions, Alerts Allergy Allergy Status Severity Reaction(s) Onset Inactive Treating Comm ents Source Name Type Date Date Clinician NO KNOWN Drug Active [facility] ALLERGIE Class ity of S [facility] Medications This patient has no known medications. Procedures This patient has no known procedures. Encounters Start End Encounter Admission Attending Care Care Encounter Source Date/Time Date/Time Type Type Clinicians Facility Department ID 2021-03-19 Emergency [facility] [id number] Univers 18:22:52 [facility] 2021-03-19 Outpatient P [facility] [id number] Univers 17:49:20 [facility] 2022-01-22 2022-01-22 Outpatient FÉLIX_C [facility] [id number] [place] 00:00:00 00:00:00 [id number] [facility] 2022-01-22 2022-01-22 [facility] [id number] 00:00:00 00:00:00 Scarlett acc-11ed-a [id number] 2022-01-08 2022-01-08 Outpatient FÉLIX_C [facility] [id number] [place] 00:00:00 00:00:00 [id number] [facility] 2022-01-08 2022-01-08 Outpatient Félix [facility] [id number] 00:00:00 00:00:00 Scarlett [facility] living-11ed-[id number] 2022-01-05 2022-01-05 Outpatient FÉLIX_Rosita [facility] [id number] [place] 00:00:00 00:00:00 [id number] [facility] 2019-11-29 2019-11-29 Outpatient R PASTORA [facility] [id number] Univers 15:20:00 15:20:00 EMMANUEL avalos [facility] 2019-11-29 2019-11-29 Outpatient R [facility] [id number] Univers 08:00:00 08:00:00 [facility] 2019-11-15 2019-11-15 Outpatient R [facility] [id number] Univers 11:20:00 11:20:00 [id number] [facility] 2019-11-15 2019-11-15 Outpatient R PASTORA [facility] [id number] Univers 11:20:00 11:20:00 EMMANUEL eben [facility] Results This patient has no known results.
[2022-03-28 03:01] LABS: Absolute Lymphocytes (CBC) 3.7 K/uL (0.7-4.9); Hematocrit 36.9 % (36.0-45.0); Lymphocytes % 43.6 % (15.3-44.8); MCV 90.5 fL (80-100); MPV 7.3 fL (7.6-11.3); RBC Red Blood Cell Count 4.08 M/uL (3.86-4.86)
[2022-03-28 03:09] LABS: Urine Blood 3+ (Negative); Urine Glucose Negative (Negative); Urine Protein Negative (Negative); Urine Specific Gravity 1.025 (1.005-1.030)
[2022-03-28 03:49] LABS: Potassium 3.6 mmol/L (3.5-5.1)
[2022-03-28 03:54] LABS: Urine Specific Gravity/Preg 1.025 (1.005-1.030)
[2022-03-28] MEDS ORDERED: NITROFURAN MACRO 100 MG CAP PO ONE (04:18)
--- NOTE | 2022-03-28 05:13 | EDPHYS ---
Physician Documentation [facility] Name: Twila Heath Age: 31 yrs Sex: Female : 1990 Arrival Date: 03/28/2022 Time: 02:24 Bed 5 Private MD: ED Physician Reece Tello HPI: 03/28 05:56 This 31 yrs old Female presents to ER via Wheelchair with complaints of kdr Vaginal Bleeding, + Preg <12wks. 05:56 Patient awoke just prior to arrival and noted that she had blood in the bed. She had kdr not had any prodromal or suspicion that she was having any difficulty. She is about 12 to 14 weeks with a . She is G5, P4. She has not had complications with her prior pregnancies of this nature. She presents the ED with no further bleeding at this time. She denies any significant abdominal or flank pain. She otherwise is stable and without need for significant intervention at this time.. Onset: The symptoms/episode began/occurred suddenly, gradually. Severity of symptoms: At their worst the symptoms were mild moderate just prior to arrival, in the emergency department the symptoms are unchanged. The patient has not experienced similar symptoms in the past. The patient has been recently seen by a physician: Dr. Whyte an catalyst supervisor specialist, in the office, 3 day(s) ago. 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 Flu vaccine is not up to date. - Social history:: Smoking status: Patient denies any tobacco usage or history of. ROS: 05:56 Constitutional: Negative for fever, chills, and weight loss, Eyes: Negative for injury, kdr pain, redness, and discharge, ENT: Negative for injury, pain, and discharge, Neck: Negative for injury, pain, and swelling, Cardiovascular: Negative for chest pain, palpitations, and edema, Respiratory: Negative for shortness of breath, cough, wheezing, and pleuritic chest pain, Abdomen/GI: Negative for abdominal pain, nausea, vomiting, diarrhea, and constipation, Back: Negative for injury and pain, MS/Extremity: Negative for injury and deformity, Skin: Negative for injury, rash, and discoloration, Neuro: Negative for headache, weakness, numbness, tingling, and seizure activity. Psych: Negative for depression, anxiety, suicide ideation, homicidal ideation, and hallucinations, Allergy/Immunology: Negative for hives, rash, and allergies, Endocrine: Negative for neck swelling, polydipsia, polyuria, polyphagia, and marked weight changes, Hematologic/Lymphatic: Negative for swollen nodes, abnormal bleeding, and unusual bruising. 05:56 : Positive for vaginal bleeding, Negative for urinary frequency, small amounts, hematuria, pelvic pain, flank pain, burning with urination, difficulty urinating, bladder incontinence, foul smelling urine. Exam: 05:56 Constitutional: This is a well developed, well nourished patient who is awake, alert, kdr and in no acute distress. Head/Face: Normocephalic, atraumatic. Eyes: Pupils equal round and reactive to light, extra-ocular motions intact. Lids and lashes normal. Conjunctiva and sclera are non-icteric and not injected. Cornea within normal limits. Periorbital areas with no swelling, redness, or edema. Neck: Trachea midline, no thyromegaly or masses palpated, and no cervical lymphadenopathy. Supple, full range of motion without nuchal rigidity, or vertebral point tenderness. No Meningismus. Chest/axilla: Normal chest wall appearance and motion. Nontender with no deformity. No lesions are appreciated. Cardiovascular: Regular rate and rhythm with a normal S1 and S2. No gallops, murmurs, or rubs. Normal PMI, no JVD. No pulse deficits. Respiratory: Lungs have equal breath sounds bilaterally, clear to auscultation and percussion. No rales, rhonchi or wheezes noted. No increased work of breathing, no retractions or nasal flaring. Abdomen/GI: Soft, non-tender, with normal bowel sounds. No distension or tympany. No guarding or rebound. No evidence of tenderness throughout. Back: No spinal tenderness. No costovertebral tenderness. Full range of motion. Skin: Warm, dry with normal turgor. Normal color with no rashes, no lesions, and no evidence of cellulitis. MS/ Extremity: Pulses equal, no cyanosis. Neurovascular intact. Full, normal range of motion. Neuro: Awake and alert, GCS 15, oriented to person, place, time, and situation. Cranial nerves II-XII grossly intact. Motor strength 5/5 in all extremities. Sensory grossly intact. Cerebellar exam normal. Normal gait. Psych: Awake, alert, with orientation to person, place and time. Behavior, mood, and affect are within normal limits. Vital Signs: 02:38 BP 122 / 76; Pulse 91; Resp 17 S; Temp 97.7; Pulse Ox 98% on R/A; Weight 81.65 kg (R); aa9 Height 5 ft. 4 in. (162.56 cm) (R); Pain 0/10; 04:28 BP 118 / 78; Pulse 72; Resp 18 S; Pulse Ox 99% on R/A; as6 05:00 BP 104 / 67; Pulse 63; Resp 17 S; Pulse Ox 99% on R/A; Pain 0/10; aa9 02:38 Body Mass Index 30.90 (81.65 kg, 162.56 cm) aa9 MDM: 05:12 Patient medically screened. kdr 05:56 Data reviewed: vital signs, nurses notes, lab test result(s), radiologic studies. kdr Counseling: I had a detailed discussion with the patient and/or guardian regarding: the historical points, exam findings, and any diagnostic results supporting the discharge/admit diagnosis, lab results, radiology results, the need for outpatient follow up. Physician consultation: Thom Whyte MD was called at 05:59, was contacted at 05:59, regarding consult, patient's condition, outpatient follow-up, tomorrow, and will see patient in office, tomorrow. 03/28 02:32 Order name: Abo/rh Typing; Complete Time: 03:30 kdr 03/28 02:32 Order name: Basic Metabolic Panel; Complete Time: 05:11 kdr 03/28 02:32 Order name: CBC with Diff; Complete Time: 03:30 kdr 03/28 02:32 Order name: Quantitative Hcg; Complete Time: 05:11 kdr 03/28 03:09 Order name: Urine Dipstick-Ancillary; Complete Time: 03:30 EDMS 03/28 03:18 Order name: Urine --Ancillary (enter results); Complete Time: 05:11 wm 03/28 02:32 Order name: IV Saline Lock; Complete Time: 02:55 kdr 03/28 02:32 Order name: Labs collected and sent; Complete Time: 02:55 kdr 03/28 02:32 Order name: NPO; Complete Time: 02:55 kdr 03/28 02:32 Order name: Urine Dipstick-Ancillary (obtain specimen); Complete Time: 03:04 kdr 03/28 02:38 Order name: US Transvaginal Ob kdr Administered Medications: 04:27 Not Given (Other Intervention Used): Nitrofurantoin 50 mg PO once as6 04:28 Drug: Nitrofurantoin 100 mg Route: PO; as6 05:34 Follow up: Response: No adverse reaction as6 Point of Care Testing: Urine : 05:17 hCG Reading: Positive; Control Reading: Positive; aa9 Disposition Summary: 03/28/22 05:12 Discharge Ordered Location: Home kdr Problem: new kdr Symptoms: are resolved kdr Condition: Stable kdr Diagnosis - Threatened kdr Followup: kdr - With: Private Physician - When: 2 - 3 days - Reason: Wound Recheck, Recheck today's complaints, Continuance of care, Re-evaluation by your physician Discharge Instructions: - Discharge Summary Sheet kdr - Placental Abruption kdr - Vaginal Bleeding During , Second Trimester kdr - Threatened Miscarriage, Olyu-og-[id number] kdr Forms: - Medication Reconciliation Form kdr - Thank You Letter kdr Prescriptions: - Macrobid 100 mg Oral Capsule - take 1 capsule by ORAL route every 12 hours for 7 days; 14 capsule; Refills: 0, kdr Product Selection Permitted Signatures: Dispatcher [employer] Reece Alberts MD MD kdr Rm Huff, RN RN as6 Danielle Ken, RN RN aa9
--- NOTE | 2022-03-28 05:13 | ER ---
Nurse's Notes [facility] Name: Twila Heath Age: 31 yrs Sex: Female : 1990 Arrival Date: 03/28/2022 Time: 02:24 Bed 5 Private MD: Diagnosis: Threatened Presentation: 03/28 02:56 Chief complaint: Patient states: I woke up about 30 min ago and saw blood on the bed, I aa9 got up to the restroom and I had more blood come out. Initial Sepsis Screen: Does the patient meet any 2 criteria? No. Patient's initial sepsis screen is negative. Does the patient have a suspected source of infection? No. Patient's initial sepsis screen is negative. Risk Assessment: Do you want to hurt yourself or someone else? Patient reports no desire to harm self or others. Onset of symptoms was March 28, 2022. 02:56 Method Of Arrival: Wheelchair aa9 02:56 Acuity: CLINT 3 aa9 03:08 Coronavirus screen: Vaccine status: Patient reports being unvaccinated. Ebola Screen: aa9 No symptoms or risks identified at this time. Note pt denies abd pain. Triage Assessment: 03:06 General: Appears in no apparent distress. uncomfortable, Behavior is cooperative, aa9 appropriate for age, anxious. Pain: Denies pain. EENT: No signs and/or symptoms were reported regarding the EENT system. Neuro: Level of Consciousness is awake, alert, obeys commands, Oriented to person, place, time, situation, Facial symmetry appears normal. Cardiovascular: Patient's skin is warm and dry. Respiratory: Airway is patent Respiratory effort is even, unlabored. GI: No signs and/or symptoms were reported involving the gastrointestinal system. : No signs and/or symptoms were reported regarding the genitourinary system. Derm: Skin is intact, is healthy with good turgor, Skin is pink, warm \T\ dry. Musculoskeletal: No signs and/or symptoms reported regarding the musculoskeletal system. 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 Flu vaccine is not up to date. - Social history:: Smoking status: Patient denies any tobacco usage or history of. Screenin:57 Abuse screen: Denies threats or abuse. Denies injuries from another. Nutritional aa9 screening: No deficits noted. Tuberculosis screening: No symptoms or risk factors identified. Fall Risk None identified. Assessment: 02:57 Obstetrical Assessment: General assessment: awake and alert, skin warm and dry, aa9 respirations even and unlabored. General: Appears comfortable, well groomed, Behavior is cooperative, appropriate for age, anxious. Pain: Denies pain. Neuro: Level of Consciousness is awake, alert, obeys commands, Oriented to person, place, time, situation. Cardiovascular: Patient's skin is warm and dry. Respiratory: Airway is patent Respiratory effort is even, unlabored. GI: No signs and/or symptoms were reported involving the gastrointestinal system. : No signs and/or symptoms were reported regarding the genitourinary system. EENT: No signs and/or symptoms were reported regarding the EENT system. Derm: Skin is intact, is healthy with good turgor. Vital Signs: 02:38 BP 122 / 76; Pulse 91; Resp 17 S; Temp 97.7; Pulse Ox 98% on R/A; Weight 81.65 kg (R); aa9 Height 5 ft. 4 in. (162.56 cm) (R); Pain 0/10; 04:28 BP 118 / 78; Pulse 72; Resp 18 S; Pulse Ox 99% on R/A; as6 05:00 BP 104 / 67; Pulse 63; Resp 17 S; Pulse Ox 99% on R/A; Pain 0/10; aa9 02:38 Body Mass Index 30.90 (81.65 kg, 162.56 cm) aa9 ED Course: 02:24 Patient arrived in ED. ja2 02:32 Reece Tello MD is Attending Physician. kdr 02:40 Missed attempt(s): 20 gauge in left forearm. Bleeding controlled, band aid applied, aa9 catheter tip intact. 02:55 Danielle Ken, MADHAVI is Primary Nurse. aa9 02:55 Placed in gown. Bed in low position. Call light in reach. Side rails up X2. Adult w/ aa9 patient. 02:55 Inserted saline lock: 22 gauge in right forearm, using aseptic technique. Blood aa9 collected. 02:55 Abo/rh Typing Sent. aa9 02:55 Basic Metabolic Panel Sent. aa9 02:55 CBC with Diff Sent. aa 02:55 Quantitative Hcg Sent. aa 02:56 Triage completed. aa9 03:49 US Transvaginal Ob In Process Unspecified. EDMS 05:17 Arm band placed on right wrist. aa9 05:18 No provider procedures requiring assistance completed. aa9 05:35 IV discontinued, intact, bleeding controlled, No redness/swelling at site. Pressure as6 dressing applied. Administered Medications: 04:27 Not Given (Other Intervention Used): Nitrofurantoin 50 mg PO once as6 04:28 Drug: Nitrofurantoin 100 mg Route: PO; as6 05:34 Follow up: Response: No adverse reaction as6 Medication: 05:17 VIS not applicable for this client. aa9 Point of Care Testing: Urine : 05:17 hCG Reading: Positive; Control Reading: Positive; aa9 Outcome: 05:12 Discharge ordered by . kdr 05:34 Discharged to home ambulatory, with significant other. as6 05:34 Condition: stable 05:34 Discharge instructions given to patient, Instructed on discharge instructions, follow up and referral plans. medication usage, Demonstrated understanding of instructions, follow-up care, medications, Prescriptions given X 1. 05:35 Patient left the ED. as6 Signatures: Dispatcher [employer] EDSD Reece Tello MD MD kdr Aixa Womack Ashby, RN RN as6 Danielle Ken, MADHAVI RN aa9 Corrections: (The following items were deleted from the chart) 03:08 02:56 Chief complaint: Patient states: I woke up about 2 hours ago and saw blood on the aa9 bed, I got up to the restroom and I had more blood come out. aa9
[2022-03-28 05:50] VITALS: BP 106/91; TEMP 98.8; O2SAT 100
--- NOTE | 2022-03-28 19:39 | RAD REPORT ---
EXAM DESCRIPTION: ADDENDUM #1 Urgent finding reported to Dr. Young at 03/28/2022 5:13 AM LEAD SYSTEMS ARCHITECT Electronically signed by: Portillo Castle 03/28/2022 7:22 AM LEAD SYSTEMS ARCHITECT End of Addendum EXAM DESCRIPTION: Transvaginal OB CLINICAL HISTORY: 31 years Female, VAGINAL BLEEDING COMPARISON: None. TECHNIQUE: Complete first trimester obstetrical ultrasound obtained with transvaginal and transabdom inal imaging. FINDINGS: Uterus: No myometrial abnormalities. Possible trace fluid in the cervix. Gestational sac: Qualitatively normal appearing gestational sac. pole: Fetus identified with a crown-rump length of 6.9 cm BPD: 2.43 cm compatible with an estimated gestational age of 14 weeks, 0 days. HC: 9.06 cm compatible with an estimated gestational age is 14 weeks, 0 days. AC: 7.53 cm compatible with an estimated gestational age of 14 weeks, 0 days. FL: 1.35 cm compatible with an estimated gestational age of 13 weeks, 6 days. heart motion: heart rate 156 bpm Yolk sac: Not identified. Placenta: Heterogeneous appearance with septations subjacent to the placenta Right ovary: The right ovary measures 3.1 x 2.0 x 2.7 cm Left ovary: The left ovary measures 2.0 x 1.0 x 1.9 cm Adnexa: No additional adnexal findings. Free fluid: No free fluid. Duplex imaging: Color and spectral Doppler imaging demonstrates blood flow and ovaries. IMPRESSION: 1. Single live intrauterine with estimated gestational age of 13 weeks, 5 days . heart rate of 156 beats for minute. 2. Mild heterogeneity subjacent to the placenta may represent placental abruption. Close continued ob stetrical and ultrasound follow-up recommended. Electronically signed by: Portillo Castle 03/28/2022 5:01 AM LEAD SYSTEMS ARCHITECT Due to temporary technical issues with the PACS/Fluency reporting system, reports are being signed by the in house radiologists without review as a courtesy to insure prompt reporting. The interpreting radiologist is fully responsible for the content of the report.
== END 2022-03-28 05:35 | disposition home or self-care (01) ==
LOC: ER 02:18
DX: O20.0 Threatened abortion (principal)
CPT/HCPCS: 36415; 76817; 80048; 81003; 81025; 84702; 85025; 86900; 86901; 99284

== ENCOUNTER 2022-04-05 17:13 | Emergency (ER) | payer OTHER ==
--- OUTSIDE RECORDS SUMMARY | 2022-04-05 17:16 | XMS REPORT | Continuity of Care Document ---
:1990 Author Organization [facility] t Address [address] [place] [address] Dr. [address] [place] [address] Care Team Providers Name Role Phone LISANDRA Attending Clinician Unavailable Scarlett Heard Attending Clinician [phone] EMMANUEL GUILLORY Attending Clinician Unavailable LIA JORGE Admitting Clinician Unavailable LISANDRA Admitting Clinician Unavailable Payers Payer Name Policy Type Policy Number Effective Date Expiration Date [facility] [id number] 2019 CHOICE MEDICAID 00:00:00 Problems This patient has no known problems. Allergies, Adverse Reactions, Alerts Allergy Allergy Status Severity Reaction(s) Onset Inactive Treating Comm ents Source Name Type Date Date Clinician NO KNOWN Drug Active [facility] ALLERGIE Class ity of S [facility] Medications Ordered Filled Start Stop Current Ordering Indication Dosage Frequency Signature Comments Components Source Medication Medication Date Date Medication? Clinician (SIG) Name Name B12 Lipo-B B12 Lipo-B No B12 Lipo-B [place] IM QW IM QW 8-19 IM QW Communi 00:00: ty 00 Hospita l Clinics B12 Lipo-B B12 Lipo-B No B12 Lipo-B [place] IM QW IM QW 8-19 IM QW Communi 00:00: ty 00 Hospita Clinics phentermine phentermine No 1 Q1D phentermin [place] 37.5 mg 37.5 mg e 37.5 mg Comm uni tablet Take tablet Take tablet ty 1 tablet 1 tablet Take 1 Hospi ta every day every day tablet l by oral by oral every day Clin ics route. route. by oral route. fluconazole fluconazole No fluconazol [place] 150 mg 150 mg e 150 mg Communi tablet TAKE tablet TAKE tablet ty 1 TABLET BY 1 TABLET BY TAKE 1 Hospita MOUTH 1 MOUTH 1 TABLET BY l TIME. SEPTEMBER TIME. MAY MOUTH 1 Cl inics REPEAT A REPEAT A TIME. MAY DOSE IN 72 DOSE IN 72 REPEAT A HOURS IF HOURS IF DOSE IN 72 SYMPTOMS SYMPTOMS HOURS IF HAVE NOT HAVE NOT SYMPTOMS COMPLETELY COMPLETELY HAVE NOT RESOLVED RESOLVED COMPLETELY RESOLVED phentermine phentermine No phentermin [place] 37.5 mg 37.5 mg e 37.5 mg Comm uni tablet TAKE tablet TAKE tablet ty 1 TABLET BY 1 TABLET BY TAKE 1 Hospita MOUTH EVERY MOUTH EVERY TABLET BY l DAY DAY MOUTH Clinics EVERY DAY Vital Signs Vital Name Observation Time Observation Value Comments Source BP Diastolic 2022-01-22 00:00:00 84 mm[Hg] [facility] s Height 2022-01-22 00:00:00 64 [in_i] [facility] s BMI (Body Mass 2022-01-22 00:00:00 29.9 kg/m2 [facility]) [facility] s BP Systolic 2022-01-22 00:00:00 129 mm[Hg] [facility] s Body Weight 2022-01-22 00:00:00 2784 [oz_av] [facility] s BP Diastolic 2022-01-08 00:00:00 77 mm[Hg] [facility] s Height 2022-01-08 00:00:00 64 [in_i] [facility] s BMI (Body Mass 2022-01-08 00:00:00 30 kg/m2 [facility]) [facility] s BP Systolic 2022-01-08 00:00:00 118 mm[Hg] [facility] s Body Weight 2022-01-08 00:00:00 2801 [oz_av] [facility] s Procedures This patient has no known procedures. Encounters Start End Encounter Admission Attending Care Care Encounter Source Date/Time Date/Time Type Type Clinicians Facility Department ID 2021-03-19 Emergency [facility] [id number] Univers 18:22:52 [facility] 2021-03-19 Outpatient P [facility] [id number] Univers 17:49:20 [facility] 2022-01-22 2022-01-22 Outpatient SISSON_C [facility] 2021 [place] 00:00:00 00:00:00 [id number] [facility] i ty [facility] Clinics 2022-01-22 2022-01-22 Outpatient Félix [facility] [id number] 00:00:00 00:00:00 Scarlett acc-11ed-a [id number] 2022-01-22 2022-01-22 [facility] [place] 00:00:00 00:00:00 Félix [facility] MSN, [employer], Hospital - ty MANIPULATIVE THERAPY SPECIALIST-C: [address] [place] [facility], Clinic s [address], [facility] [address], Tika Heard [place] MSN, MANIPULATIVE THERAPY SPECIALIST-C [id number] , Ph. 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 2022-01-08 2022-01-08 Outpatient Félix [facility] [id number] 00:00:00 00:00:00 Scarlett retirement-11ed-9 [id number] 2022-01-05 2022-01-05 Outpatient [facility]SON[facility]C [facility] 2021 [place] 00:00:00 00:00:00 [id number] Commun i ty [facility]ospita [facility] Clinics 2019-11-29 2019-11-29 Outpatient R PASTORA [facility] [id number] Univers 15:20:00 15:20:00 EMMANUEL avalos [facility] 2019-11-29 2019-11-29 Outpatient R [facility] [id number] Univers 08:00:00 08:00:00 [facility] 2019-11-15 2019-11-15 Outpatient R [facility] [id number] Univers 11:20:00 11:20:00 [id number] [facility] 2019-11-15 2019-11-15 [facility] [id number] Univers 11:20:00 11:20:00 EMMANUEL [facility] Results This patient has no known results.
[2022-04-05 19:03] LABS: Absolute Lymphocytes (CBC) 3.1 K/uL (0.7-4.9); Hematocrit 35.6 % (36.0-45.0); Lymphocytes % 29.7 % (15.3-44.8); MCV 91.4 fL (80-100); MPV 7.4 fL (7.6-11.3); RBC Red Blood Cell Count 3.89 M/uL (3.86-4.86)
[2022-04-05 19:56] LABS: Potassium 3.1 mmol/L (3.5-5.1)
[2022-04-05] MEDS ORDERED: POTASSIUM CL SA 10 MEQ TAB PO ONE (21:10)
--- NOTE | 2022-04-06 01:03 | ER ---
Nurse's Notes [facility] Name: Twila Heath Age: 31 yrs Sex: Female : 1990 Arrival Date: 04/05/2022 Time: 17:18 Bed 20 Private MD: Diagnosis: Hypokalemia;Threatened [employer]: 04/05 21:55 5, 0, Living 4, LMP 12/21/2021 kb Screenin:00 Abuse screen: Denies threats or abuse. Nutritional screening: No deficits noted. jb4 Tuberculosis screening: No symptoms or risk factors identified. Fall Risk None identified. Assessment: 19:00 General: Appears in no apparent distress. comfortable, Behavior is calm, cooperative, jb4 appropriate for age. Pain: Complains of pain in abdomen Pain does not radiate. Pain currently is 4 out of 10 on a pain scale. Quality of pain is described as crampy. Neuro: Level of Consciousness is awake, alert, obeys commands, Oriented to person, place, time, situation. Cardiovascular: Patient's skin is warm and dry. Respiratory: Airway is patent Respiratory effort is even, unlabored, Respiratory pattern is regular, symmetrical. GI: No signs and/or symptoms were reported involving the gastrointestinal system. : Reports cramping, discharge, from vagina that is bloody, vaginal bleeding that is heavy flow. EENT: No signs and/or symptoms were reported regarding the EENT system. Derm: Skin is intact, Skin is pink, warm \T\ dry. Musculoskeletal: Circulation, motion, and sensation intact. Range of motion: intact in all extremities. 20:00 Reassessment: Patient appears in no apparent distress at this time. Patient and/or jb4 family updated on plan of care and expected duration. Pain level reassessed. Patient is alert, oriented x 3, equal unlabored respirations, skin warm/dry/pink. 21:00 Reassessment: Patient appears in no apparent distress at this time. Patient and/or jb4 family updated on plan of care and expected duration. Pain level reassessed. Patient is alert, oriented x 3, equal unlabored respirations, skin warm/dry/pink. Vital Signs: 21:30 BP 118 / 80; Pulse 85; Resp 16; Pulse Ox 100% on R/A; jb4 ED Course: 17:18 Patient arrived in ED. rg4 17:18 Thais Elias FNP-C is [facility]. kb 17:18 Jorge Nelson MD is Attending Physician. kb 19:00 Patient has correct armband on for positive identification. Placed in gown. Bed in low jb4 position. Call light in reach. Side rails up X 1. Client placed on continuous cardiac and pulse oximetry monitoring. NIBP monitoring applied. 19:58 Alfa Adame, RN is Primary Nurse. jb4 21:49 No provider procedures requiring assistance completed. Patient did not have IV access jb4 during this emergency room visit. Administered Medications: 21:17 Drug: Potassium Chloride 40 mEq Route: PO; jb4 Outcome: 21:49 Discharge ordered by . kb 21:57 Discharged to home ambulatory. jb4 21:57 Condition: stable 21:57 Discharge instructions given to patient, Instructed on discharge instructions, follow up and referral plans. Demonstrated understanding of instructions, follow-up care. 21:58 Patient left the ED. jb4 Signatures: Thais Elias FNP-C FNP-Jennifer Brewer rg4 Alfa Adame, RN RN jb4
--- NOTE | 2022-04-06 01:04 | EDPHYS ---
Physician Documentation [facility] Name: Twila Heath Age: 31 yrs Sex: Female : 1990 Arrival Date: 04/05/2022 Time: 17:18 Bed 20 Private MD: ED Physician Jorge Nelson HPI: 04/05 21:55 This 31 yrs old Female presents to ER via Unassigned with complaints of kb Vaginal Bleeding, + Preg <12wks. 21:55 The patient presents to the emergency department with abdominal pain, described as kb crampy, vaginal bleeding, that is moderate. The estimated gestational age is 15 weeks. course: care: private OB physician, Dr. Whyte. Previous pregnancies: in previous pregnancies patient has had vaginal delivery, no complications. Associated signs and symptoms: Pertinent positives: abdominal pain, vaginal bleeding. The patient has experienced a previous episode. The patient has been recently seen at the [facility], last week, for similar complaints. LAST SAWYER: 21:55 5, 0, Living 4, LMP 12/21/2021 kb ROS: 21:54 Constitutional: Negative for fever, chills, and weight loss. kb 21:54 Abdomen/GI: Positive for abdominal cramps. 21:54 : Positive for vaginal bleeding. 21:54 All other systems are negative. Exam: 21:54 Constitutional: This is a well developed, well nourished patient who is awake, alert, kb and in no acute distress. Head/Face: Normocephalic, atraumatic. ENT: Moist Mucous membranes Cardiovascular: Regular rate and rhythm with a normal S1 and S2. No gallops, murmurs, or rubs. No pulse deficits. Respiratory: Respirations even and unlabored. No increased work of breathing. Talking in full sentences Abdomen/GI: Soft, non-tender. No distention Skin: Warm, dry with normal turgor. Normal color. MS/ Extremity: Pulses equal, no cyanosis. Neurovascular intact. Full, normal range of motion. Neuro: Awake and alert, GCS 15, oriented to person, place, time, and situation. Moves all extremities. Normal gait. Vital Signs: 21:30 BP 118 / 80; Pulse 85; Resp 16; Pulse Ox 100% on R/A; jb4 MDM: 17:18 Patient medically screened. kb 21:52 Data reviewed: vital signs, nurses notes. Data interpreted: Pulse oximetry: on room air kb is 100 %. Interpretation: normal. Counseling: I had a detailed discussion with the patient and/or guardian regarding: the historical points, exam findings, and any diagnostic results supporting the discharge/admit diagnosis, lab results, radiology results, the need for outpatient follow up, an OB/Gyne specialist, to return to the emergency department if symptoms worsen or persist or if there are any questions or concerns that arise at home. 21:53 ED course: FHT 143, measuring 14 weeks [address] tech report[address] Dr Dobson called verbal kb report of US which was normal for gestational age, no evidence of abruption. . 04/05 17:23 Order name: Abo/rh Typing ld1 04/05 17:23 Order name: Basic Metabolic Panel ld1 04/05 17:23 Order name: CBC with Diff ld1 04/05 17:23 Order name: Quantitative Hcg ld1 04/05 17:23 Order name: IV Saline Lock; Complete Time: 21:00 ld1 04/05 17:23 Order name: Labs collected and sent; Complete Time: 21:00 ld1 04/05 17:23 Order name: NPO; Complete Time: 21:00 ld1 04/05 17:23 Order name: Urine Dipstick-Ancillary (obtain specimen); Complete Time: 21:00 ld1 Administered Medications: 21:17 Drug: Potassium Chloride 40 mEq Route: PO; jb4 Disposition: 04/06 10:25 Co-signature as Attending Physician, Jorge Nelson MD. rn Disposition Summary: 04/05/22 21:49 Discharge Ordered Location: Home kb Condition: Stable kb Diagnosis - Hypokalemia kb - Threatened kb Followup: kb - With: Emergency Department - When: As needed - Reason: Worsening of condition Followup: kb - With: Private Physician - When: 2 - 3 days - Reason: Recheck today's complaints, Continuance of care, Re-evaluation by your physician Discharge Instructions: - Discharge Summary Sheet kb - Threatened Miscarriage, [id number] kb - Vaginal Bleeding During , Second Trimester, [id number] kb Forms: - Medication Reconciliation Form kb - Thank You Letter kb - Antibiotic Education kb - Prescription Opioid Use kb Signatures: Dispatcher [employer] Thais Saenz, [employer] Jorge Nelson MD MD rn Alfa Adame RN RN jb4 Yuli Marcano RN RN ld1
[2022-04-06 01:43] VITALS: BP 118/80; O2SAT 100
--- NOTE | 2022-04-06 08:24 | RAD REPORT ---
EXAM DESCRIPTION: US - OB Limited - 04/05/2022 8:02 pm CLINICAL HISTORY: Abd cramping, Pelvic pain COMPARISON: Transvaginal OB dated 03/28/2022 FINDINGS: A single gestational sac is seen within the uterus. The shape of the sac is within normal limits for gestational age. Within the sac is a single fetus with femur length of 1.46 cm, correlatin g to estimated gestational age of 14 weeks 2 days. Estimated date of delivery is 10/02/2022. Heart rate is 143 BPM. Placenta is fundal without evidence of abruption. Amniotic fluid volume is subjectively normal. There is a thin membranous septum seen traversing the internal os of the cervix. This should be re-evaluat ed in the second trimester. The cervix is long and closed. Neither ovary well visualized due to bowel gas. IMPRESSION: Single live early intrauterine gestation with estimated gestational age of 14 weeks 2 da ys, HARJEET 10/02/2022. Placenta appears fundal without evidence of abruption. No placenta previa is seen, however there is a thin membranous septum traversing the cervix internal loss. Recommend repeat evaluation in the mid s econd-trimester. Findings discussed with Stefany Elias in the emergency room 04/05/2022 by telephone approximately 9 :30 p.m.
== END 2022-04-05 21:58 | disposition home or self-care (01) ==
LOC: ER 17:13
DX: O20.0 Threatened abortion (principal); O99.282 Endocrine, nutritional and metabolic diseases complicating pregnancy, second trimester; E87.6 Hypokalemia; Z3A.14 14 weeks gestation of pregnancy
CPT/HCPCS: 36415; 76815; 80048; 84702; 85025; 86900; 86901; 99282

== ENCOUNTER 2024-09-16 05:36 | Emergency (ER) | payer OTHER ==
--- OUTSIDE RECORDS SUMMARY | 2024-09-16 05:40 | XMS REPORT | Continuity of Care Document ---
Author Name Unknown Address [address] [facility] [address] [place] [address] [facility] Address [address] [facility] [place] [address] Care Team Providers Care Composite Bond Worker Name Role Phone Naye Manuel NP Primary Care Physician [phone] Katarzyna Cunningham Attending Clinician Unavailable BECKIE QURESHI Attending Clinician Unavail able Titus Beckie JACKSON Attending Clinician + KATHERINE ARCE Attending Clinician Unavailable HARRIET BAXTER Attending Clinician UnavailKatherine Bardales Attending Clinician [phone] Doctor Unassigned, [place] Attending Clinician U Harriet Khalil CNM Attending Clinician [phone] Lab, [facility] Attending Clinician Unavailable Pob, [facility] Main Attending Clinician Unavailcelina Alford MD, Yuli Attending Clinician [phone] [facility] Res-1st Attending Clinician Unavailable YULI ALFORD Attending Clinician Unavailable YULI ALFORD Attending Clinician Unavailable SYLVIA MONROE Attending Clinician Unav ailSYLVIA Pagan Attending Clinician Unav Sylvia Sanches MD Attending Clinician + ALICJA MOELLER Attending Clinician Unavailable Alicja Moeller NP Attending Clinician LISANDRA Attending Clinician Unavailable Scarlett Heard Attending Clinician [phone] EMMANUEL GUILLORY Attending Clinician Unavailable LIA JORGE Admitting Clinician Unavaila ble SYLVIA MONROE Admitting Clinician Unav ALICJA Tripp Admitting Clinician Unavailable LISANDRA Admitting Clinician Unavailable Katarzyna Cunningham Admitting Clinician Unavailable Payers Payer Name Policy Type Policy Number Effective Date Expirati on Date Source [employer] MEDICA[employer] [id number] 2019 00:00:00 Problems Condition Name Condition Details Condition Category Status Onset Date Resolution Date Last Treatment Date Treating Clinician Comments Source Flu vaccine refused Flu vaccine refused Disease Active 02-14 00:00: 00 [facility] Missed Missed Disease Active 01-25 00:00: 00 [facility] Family history of osteogenes is imperfecta Family history of osteogenes is imperfecta Disease Active 01-17 00:00: 00 Overview: Formattin g of this note might be different from the original. 2015 with [facility] Obesity (BMI 30.0-34.9) Obesity (BMI 30.0-34.9) Disease Active 12-09 00:00: 00 [facility] Threatened miscarriag e Threatened miscarriag e Disease Resolve d 01-17 00:00: 00 2024-02-15 00:00:00 2024-02-15 10:23:16 [facility] History of defect History of defect Disease Resolve d 01-17 00:00: 00 2024-01-18 00:00:00 2024-01-18 09:03:13 [facility] Encounter for initial prescripti on of contracept romina pills Encounter for initial prescripti on of contracept romina pills Disease Resolve d 12-09 00:00: 00 2018-05-31 00:00:00 2018-05-31 08:33:20 [facility] Vaginal magda Vaginal magda Disease Resolve d 12-09 00:00: 00 2018-05-31 00:00:00 2018-05-31 08:33:23 [facility] Encounter for Nexplanon removal Encounter for Nexplanon removal Disease Resolve d 2014-05 00:00: 00 2016-12-09 00:00:00 2016-12-09 11:45:37 [facility] Encounter for general counseling and advice on contracept romina management Encounter for general counseling and advice on contracept romina management Disease Resolve d 2014-05 00:00: 00 2016-12-09 00:00:00 2016-12-09 11:45:38 [facility] Overweight Overweight Disease Resolve d 01-03 00:00: 00 2016-12-09 00:00:00 2021-12-06 00:37:13 [facility] Other malaise and fatigue Other malaise and fatigue Disease Resolve d 02-11 00:00: 00 2015-05-08 00:00:00 2015-05-08 11:12:04 [facility] Backache Backache Disease Resolve d 01-03 00:00: 00 2015-05-08 00:00:00 2021-12-06 00:37:13 [facility] Supervisio n of other high-risk Supervisio n of other high-risk Disease Resolve d 01-03 00:00: 00 2015-05-08 00:00:00 2021-12-06 00:37:13 [facility] Abnormal findings on screening Abnormal findings on screening Disease Resolve d 4-18 00:00: 00 2015-01-03 00:00:00 2015-01-03 11:18:39 [facility] Allergies, Adverse Reactions, Alerts Allergy Name Allergy Type Status Severity Reaction(s) Onset Date Inactive Date Treating Clinician Comments Source No Known Allergie s DA Active U 09-14 00:00: 00 [facility] NO KNOWN ALLERGIE S Drug Class Active [facility] Family History Family Member Diagnosis Comments Start Date Stop Date Sourc e Paternal grandmother Cancer [facility] Paternal grandmother Diabetes [facility] Social History Social Habit Start Date Stop Date Quantity Comments Source ASSERTION 2023-12-05 00:00:00 [facility] Alcoholic beverage intake 2024-02-15 00:00:00 2024-02-15 00:00:00 0 /d [facility] Tobacco use and exposure 2024-01-18 00:00:00 2024-01-18 00:00:00 Smokeless tobacco non-user [facility] History of Social function 2024-01-18 00:00:00 2024-01-18 00:00:00 [facility] Alcohol Comment 2016-12-09 00:00:00 2016-12-09 00:00:00 social [facility] Sex assigned at 1990 00:00:00 1990 00:00:00 [facility] Smoking Status Start Date Stop Date Source Never smoked tobacco [facility] Medications Ordered Medication Name Filled Medication Name Start Date Stop Date Current Medication? Ordering Clinician Indication Dosage Frequency Signature (SIG) Comments Components Source fluconazole 150 mg tablet 2023-05 00:00: 00 04-30 05:59 :00 No [id number] 150mg Take 1 tablet by mouth once now for 1 dose. [facility] copper (PARAGARD T 380A) IUD 1 Intra Uterine Device 2023-05 15:30: 00 04-26 15:08 :00 No [id number] 1{IUD} 1 Intra Uterine Device, Intrauteri ne, ONCE, 1 dose, On Xochitl 04/26/24 at 0930, Routine [facility] norethindro ne-e.estrad ioL-iron (,) 1.5 mg-30 mcg (21)/75 mg (7) tablet 02-14 00:00: 00 Yes [id number] 1{tbl} Take 1 tablet by mouth in the morning. [facility] miSOPROStoL (CYTOTEC) tablet 800 mcg 01-25 17:30: 00 01-25 16:57 :00 No [id number] 800ug 800 mcg, Oral, ONCE, 1 dose, On Xochitl 01/26/24 at 1230, Routine [facility] ibuprofen (IBU) tablet 800 mg 01-25 17:30: 00 01-25 16:57 :00 No [id number] 800mg 800 mg, Oral, ONCE, 1 dose, On Xochtil 01/26/24 at 1230, Routine [facility] meclizine 25 mg tablet 01-08 00:00: 00 01-17 00:00 :00 No [id number] 25mg Take 1 tablet by mouth 3 (three) times daily as needed for Nausea or Dizziness. [facility] ondansetron 4 mg disintegrat ing tablet 01-08 00:00: 00 01-17 00:00 :00 No [id number] 4mg Take 1 tablet by mouth every 8 (eight) hours as needed for Nausea and Vomiting (N/V). [facility] TERCONAZOLE SUP 6-12 00:00: 00 Yes 80 Axel Null TAKE 1 TABLET BY MOUTH EVERY 6 HOURS NEEDED FOR CRAMPING -26 00:00: 00 Yes Axel Null B12 Lipo-B IM QW B12 Lipo-B IM QW - 00:00: 00 No B12 Lipo-B IM QW [facility] B12 Lipo-B IM QW B12 Lipo-B IM QW 01-08 00:00: 00 No B12 Lipo-B IM QW [facility] Condoms Latex Lubricated (KIMONO TEXTURED CONDOMS) 12-18 00:00: 00 01-17 00:00 :00 No [id number] Use as directed [facility] 600 mg tablet TAKE 1 TABLET BY MOUTH EVERY 6 HOURS NEEDED FOR MODERATE PAIN ibuprofen 600 mg tablet TAKE 1 TABLET BY MOUTH EVERY 6 HOURS NEEDED FOR MODERATE PAIN No ibuprofen 600 mg tablet TAKE 1 TABLET BY MOUTH EVERY 6 HOURS NEEDED FOR MODERATE PAIN [facility] FE 1.5/30 (28) 1.5 mg-30 mcg (21)/75 mg (7) tablet TAKE 1 TABLET BY MOUTH IN THE MORNING 1.530 (28) 1.5 mg-30 mcg (21)/75 mg (7) tablet TAKE 1 TABLET BY MOUTH IN THE MORNING No FE 1.530 (28) 1.5 mg-30 mcg (21)/75 mg (7) tablet TAKE 1 TABLET BY MOUTH IN THE MORNING [facility] phentermine 37.5 mg tablet Take 1 tablet every day by oral route. phentermine 37.5 mg tablet Take 1 tablet every day by oral route. No 1 Q1D phentermin e 37.5 mg tablet Take 1 tablet every day by oral route. [facility] levofloxaci n 250 mg tablet TAKE 1 TABLET BY MOUTH EVERY 24 HOURS FOR 3 DAYS levofloxaci n 250 mg tablet TAKE 1 TABLET BY MOUTH EVERY 24 HOURS FOR 3 DAYS No levofloxac in 250 mg tablet TAKE 1 TABLET BY MOUTH EVERY 24 HOURS FOR 3 DAYS [facility] ondansetron 4 mg disintegrat ing tablet Place 2 tablets twice a day by translingua l route for 5 days. ondansetron 4 mg disintegrat ing tablet Place 2 tablets twice a day by translingua l route for 5 days. No 2 BID ondansetro n 4 mg disintegra ting tablet Place 2 tablets twice a day by translingu al route for 5 days. [facility] phentermine 37.5 mg tablet TAKE 1 TABLET BY MOUTH EVERY DAY phentermine 37.5 mg tablet TAKE 1 TABLET BY MOUTH EVERY DAY No phentermin e 37.5 mg tablet TAKE 1 TABLET BY MOUTH EVERY DAY [facility] prednisone 20 mg tablet TAKE 2 TABLETS BY MOUTH DAILY prednisone 20 mg tablet TAKE 2 TABLETS BY MOUTH DAILY No prednisone 20 mg tablet TAKE 2 TABLETS BY MOUTH DAILY [facility] Suprep Bowel Prep Kit 17.5 gram-3.13 gram-1.6 gram oral solution MIX AND DRINK DIRECTED Suprep Bowel Prep Kit 17.5 gram-3.13 gram-1.6 gram oral solution MIX AND DRINK DIRECTED No Suprep Bowel Prep Kit 17.5 gram-3.13 gram-1.6 gram oral solution MIX AND DRINK DIRECTED [facility] valacyclovi r 1 gram tablet TAKE 2 TABLETS BY MOUTH EVERY 12 HOURS FOR 2 DOSES PER EPISODE. REPEAT NEEDED valacyclovi r 1 gram tablet TAKE 2 TABLETS BY MOUTH EVERY 12 HOURS FOR 2 DOSES PER EPISODE. REPEAT NEEDED No valacyclov ir 1 gram tablet TAKE 2 TABLETS BY MOUTH EVERY 12 HOURS FOR 2 DOSES PER EPISODE. REPEAT NEEDED [facility] valacyclovi r 500 mg tablet TAKE 1 TABLET BY MOUTH TWICE DAILY FOR 3 DAYS FOR EACH EPISODE. REPEAT NEEDED valacyclovi r 500 mg tablet TAKE 1 TABLET BY MOUTH TWICE DAILY FOR 3 DAYS FOR EACH EPISODE. REPEAT NEEDED No valacyclov ir 500 mg tablet TAKE 1 TABLET BY MOUTH TWICE DAILY FOR 3 DAYS FOR EACH EPISODE. REPEAT NEEDED [facility] compounded medication Semagtludie s qw compounded medication Semagtludie s qw No compounded medication Semagtludi e s qw [facility] terconazole 80 mg vaginal suppository terconazole 80 mg vaginal suppository No terconazol e 80 mg vaginal suppositor y [facility] Immunizations Ordered Immunization Name Filled Immunization Name Date Status Comments Source HPV9 2024-04-26 00:00:00 Completed [facility] HPV9 2024-02-15 09:45:00 Completed [facility] Rubella 2024-02-02 11:30:00 Completed [facility] TD, NOS 2024-02-02 11:30:00 Completed [facility] TDAP 2024-02-02 11:30:00 Completed [facility] Influenza Virus Vaccine Quad IM 3+ YRS 2024-02-02 11:30:00 Completed [facility] HPV9 2024-02-02 11:30:00 Completed [facility] Vital Signs Vital Name Observation Time Observation Value Comments S ource BP Systolic 2024-09-06 00:00:00 132 mm[Hg] [facility] BP Diastolic 2024-09-06 00:00:00 89 mm[Hg] Xiomy vaughan [facility] Body Weight 2024-09-06 00:00:00 3024 [oz_av] Jitendra palma [facility] Height 2024-09-06 00:00:00 64 [in_i] [facility] BMI (Body Mass Index) 2024-09-06 00:00:00 32.4 kg/m2 [facility] Systolic blood pressure 2024-07-18 14:43:00 131 mm[Hg] [facility] Diastolic blood pressure 2024-07-18 14:43:00 92 mm[Hg] [facility] Heart rate 2024-07-18 14:43:00 83 /min [facility] Body temperature 2024-07-18 14:43:00 36.89 Arabella [facility] Respiratory rate 2024-07-18 14:43:00 17 /min [facility] Body height 2024-07-18 14:43:00 162.6 cm [facility] Body weight 2024-07-18 14:43:00 86.093 kg [facility] BMI 2024-07-18 14:43:00 32.58 kg/m2 [facility] Systolic blood pressure 2024-04-26 14:20:00 130 mm[Hg] [facility] Diastolic blood pressure 2024-04-26 14:20:00 88 mm[Hg] [facility] Heart rate 2024-04-26 14:20:00 65 /min [facility] Body temperature 2024-04-26 14:20:00 36.39 Arabella [facility] Respiratory rate 2024-04-26 14:20:00 18 /min [facility] Body height 2024-04-26 14:20:00 162.6 cm [facility] Body weight 2024-04-26 14:20:00 87.816 kg [facility] BMI 2024-04-26 14:20:00 33.23 kg/m2 [facility] Systolic blood pressure 2024-02-15 15:05:00 126 mm[Hg] [facility] Diastolic blood pressure 2024-02-15 15:05:00 77 mm[Hg] [facility] Heart rate 2024-02-15 15:05:00 67 /min [facility] Body temperature 2024-02-15 15:05:00 36.89 Arabella [facility] Respiratory rate 2024-02-15 15:05:00 18 /min [facility] Body height 2024-02-15 15:05:00 162.6 cm [facility] Body weight 2024-02-15 15:05:00 86.694 kg [facility] BMI 2024-02-15 15:05:00 32.81 kg/m2 [facility] Systolic blood pressure 2024-01-26 15:22:00 139 mm[Hg] [facility] Diastolic blood pressure 2024-01-26 15:22:00 78 mm[Hg] [facility] Heart rate 2024-01-26 15:22:00 69 /min [facility] Body temperature 2024-01-26 15:22:00 36.28 Arabella [facility] Respiratory rate 2024-01-26 15:22:00 20 /min [facility] Body height 2024-01-26 15:22:00 162.6 cm [facility] Body weight 2024-01-26 15:22:00 87.363 kg [facility] BMI 2024-01-26 15:22:00 33.06 kg/m2 [facility] Oxygen saturation in Arterial blood by Pulse oximetry 2024-01-26 15:22:00 100 /min [facility] Systolic blood pressure 2024-01-19 15:02:00 115 mm[Hg] [facility] Diastolic blood pressure 2024-01-19 15:02:00 73 mm[Hg] [facility] Heart rate 2024-01-19 15:02:00 77 /min [facility] Body temperature 2024-01-19 15:02:00 36.33 Arabella [facility] Respiratory rate 2024-01-19 15:02:00 18 /min [facility] Body height 2024-01-19 15:02:00 162.6 cm [facility] Body weight 2024-01-19 15:02:00 86.274 kg [facility] BMI 2024-01-19 15:02:00 32.65 kg/m2 [facility] Systolic blood pressure 2024-01-18 12:55:00 108 mm[Hg] [facility] Diastolic blood pressure 2024-01-18 12:55:00 66 mm[Hg] [facility] Heart rate 2024-01-18 12:55:00 79 /min [facility] Body temperature 2024-01-18 12:55:00 36.67 Arabella [facility] Respiratory rate 2024-01-18 12:55:00 18 /min [facility] Body height 2024-01-18 12:55:00 162.6 cm [facility] Body weight 2024-01-18 12:55:00 84.823 kg [facility] BMI 2024-01-18 12:55:00 32.10 kg/m2 [facility] Body weight 2024-01-14 15:03:00 83.462 kg [facility] BMI 2024-01-14 15:03:00 31.58 kg/m2 [facility] Oxygen saturation in Arterial blood by Pulse oximetry 2024-01-14 15:03:00 99 /min [facility] Systolic blood pressure 2024-01-14 15:03:00 122 mm[Hg] [facility] Diastolic blood pressure 2024-01-14 15:03:00 76 mm[Hg] [facility] Heart rate 2024-01-14 15:03:00 82 /min [facility] Body temperature 2024-01-14 15:03:00 37.11 Arabella [facility] Respiratory rate 2024-01-14 15:03:00 18 /min [facility] Body height 2024-01-14 15:03:00 162.6 cm [facility] Systolic blood pressure 2024-01-09 19:18:00 128 mm[Hg] [facility] Diastolic blood pressure 2024-01-09 19:18:00 76 mm[Hg] [facility] Heart rate 2024-01-09 19:18:00 78 /min [facility] Body temperature 2024-01-09 19:18:00 36.89 Arabella [facility] Respiratory rate 2024-01-09 19:18:00 16 /min [facility] Oxygen saturation in Arterial blood by Pulse oximetry 2024-01-09 19:18:00 99 /min [facility] Body height 2024-01-09 16:13:00 162.6 cm [facility] Body weight 2024-01-09 16:13:00 83.462 kg [facility] BMI 2024-01-09 16:13:00 31.58 kg/m2 [facility] Body Weight 2023-03-09 00:00:00 2991 [oz_av] [facility] BP Systolic 2023-03-09 00:00:00 130 mm[Hg] [facility] [place] [place] BMI (Body Mass Index) 2023-03-09 00:00:00 32.1 kg/m2 [facility] Height 2023-03-09 00:00:00 64 [in_i] [facility] BP Diastolic 2023-03-09 00:00:00 81 mm[Hg] [facility] BP Diastolic 2022-01-22 00:00:00 84 mm[Hg] [facility] Height 2022-01-22 00:00:00 64 [in_i] [facility] BMI (Body Mass Index) 2022-01-22 00:00:00 29.9 kg/m2 [facility] BP Systolic 2022-01-22 00:00:00 129 mm[Hg] [facility] [place] [place] Body Weight 2022-01-22 00:00:00 2784 [oz_av] [facility] BP Diastolic 2022-01-08 00:00:00 77 mm[Hg] [facility] Height 2022-01-08 00:00:00 64 [in_i] [facility] BMI (Body Mass Index) 2022-01-08 00:00:00 30 kg/m2 [facility] BP Systolic 2022-01-08 00:00:00 118 mm[Hg] [facility] [place] [place] Body Weight 2022-01-08 00:00:00 2801 [oz_av] [facility] Heart Rate 2024-09-04 08:58:00 86.00 /min No Null Respiratory Rate 2024-09-04 08:58:00 18.00 /min Axel Null BP Systolic 2024-09-04 08:58:00 119 mm[Hg] Edgar Null BP Diastolic 2024-09-04 08:58:00 72 mm[Hg] Kobi Null Weight Measured 2024-09-04 08:58:00 191.00 pounds Axel Null Height Measured 2024-09-04 08:58:00 64.00 inches Axel Null Body Temperature 2024-09-04 08:58:00 98.20 degrees Axel Null Systolic blood pressure 2024-04-26 14:20:00 130 mm[Hg] [place] [facility] Diastolic blood pressure 2024-04-26 14:20:00 88 mm[Hg] [place] [facility] Heart rate 2024-04-26 14:20:00 65 /min [facility] Body temperature 2024-04-26 14:20:00 36.39 Arabella [facility] Respiratory rate 2024-04-26 14:20:00 18 /min [facility] Body height 2024-04-26 14:20:00 162.6 cm [facility] Body weight 2024-04-26 14:20:00 87.816 kg [facility] BMI 2024-04-26 14:20:00 33.23 kg/m2 [facility] Oxygen saturation in Arterial blood by Pulse oximetry 2024-01-26 15:22:00 100 /min Sukhdev oglesby [facility] BP Systolic 2023-07-29 11:29:00 110 mm[Hg] Edgar Null BP Diastolic 2023-07-29 11:29:00 78 mm[Hg] Kobi Null Weight Measured 2023-07-29 11:29:00 177.00 pounds Axel Null Height Measured 2023-07-29 11:29:00 64.00 inches Axel Null Body Temperature 2023-07-29 11:29:00 98.60 degrees Axel Null Heart Rate 2023-07-29 11:29:00 89.00 /min No en Carter Null Respiratory Rate 2023-07-29 11:29:00 20.00 /min Axel Null Procedures Procedure Date / Time Performed Performing Clinician Source GC & CHLAMYDIA AMPLIFIED ASSAY 2024-04-26 15:55:00 [facility] GALV ONLY - VAGINAL PATHOGENS BY NUCLEIC ACID TESTING 2024-04-26 15:55:00 [facility] GALV ONLY - VAGINAL PATHOGENS BY NUCLEIC ACID TESTING 2024-04-26 15:55:00 [facility] GC & CHLAMYDIA AMPLIFIED ASSAY 2024-04-26 15:55:00 [facility] POCT TEST 2024-04-26 14:45:00 [facility] POCT TEST 2024-04-26 14:45:00 Katherine Arce [facility] GARDASIL 9 (HPV 9V) VACCINE 2024-04-26 14:26:42 Beckie Qureshi [facility] GARDASIL 9 (HPV 9V) VACCINE 2024-04-26 14:26:42 Beckie Qureshi [facility] POCT TEST 2024-02-22 14:53:00 Ericka Baxter [facility] POCT TEST 2024-02-15 15:25:00 Ericka Baxter [facility] OB TRANSVAGINAL 2024-01-26 18:54:42 Nisa Sanon [facility] OB TRANSVAGINAL 2024-01-19 16:06:44 [facility] 2024-01-18 12:57:00 Ericka Baxter [facility] POCT URINALYSIS W/O SPECIFIC GRAVITY 2024-01-18 12:57:00 Harriet Baxter [facility] FIRST TRIMESTER LESS THAN 14 WEEKS WITH TRANSVAGINAL 2024-01-14 18:46:35 Sylvia Monroe [facility] COMP. METABOLIC PANEL ([id number]) 2024-01-14 15:47:00 Sylvia Monroe [facility] TOTAL BETA HCG ASSAY 2024-01-14 15:47:00 Sylvia Starr [facility] CBC WITH DIFF 2024-01-14 15:47:00 Sylvia Monroe [facility] FIRST TRIMESTER LESS THAN 14 WEEKS 2024-01-09 17:46:17 Alicja Moeller [facility] POCT TEST 2024-01-09 16:49:00 Alicja Moeller [facility] URINALYSIS 2024-01-09 16:42:00 Alicja Moeller [facility] COMP. METABOLIC PANEL ([id number]) 2024-01-09 16:41:00 Alicja Moeller [facility] TOTAL BETA HCG ASSAY 2024-01-09 16:41:00 Guillermo Moeller [facility] CBC WITH DIFF 2024-01-09 16:41:00 Alicja Moeller [facility] HB ABO GROUPING 2024-01-09 16:41:00 Alicja Moeller [facility] [id number] 2022-09-14 00:00[facility]00 [facility] [id number] 2022-09-14 00:00:00 [facility] [id number] 2022-09-14 00:00:00 [facility] [id number] 2022-09-14 00:00:00 ILENEBALDO [facility] LAB ONLY PAP SMEAR-LIQUID BASED 2018-05-31 15:02:[address] [facility] HIV 1/2 AG-AB WITH REFLEX 2016-12-09 16:56:00 Sadiq Ladd [facility] Encounters Start Date/Time End Date/Time Encounter Type Admission Type Attending Clinicians Care Facility Care Department Encounter ID Source 2022-09-14 07:00:00 Inpatient Katarzyna Cunningham [facility] [id number] [facility] 2021-03-19 18:22:52 Emergency [facility] [id number] [facility] 2021-03-19 17:49:20 [facility] [facility] [id number] [facility] 2024-09-06 00:00:00 2024-09-06 00:00:00 Scarlett Heard, MSN, SILVER WRAPPER, SETTER OFF-C: [facility] [address]az NelsonRichter, [address], [place] [address] , Ph. [facility], Scarlett Heard, MSN, SETTER OFF-C [id number] [facility] 2024-09-04 08:41:20 2024-09-04 08:41:20 Outpatient SFA [facility] [id number] Axel Null 2024-09-04 00:00:00 2024-09-04 00:00:00 Outpatient Visit [facility] [id number] Axel Null 2024-07-23 00:00:00 2024-07-23 10:25:36 Telephone Beckie Qureshi [facility] FINISHER [facility] 1.2.840.114 350.1.13.10 4.2.7.2.686 [id number] [facility] 2024-07-18 08:15:00 2024-07-18 11:45:41 Outpatient R BECKIE QURESHI [facility] [id number] [facility] 2024-07-18 08:15:00 2024-07-18 11:45:41 Office Visit Beckie Qureshi [facility] [employer] [employer] FIN[employer] MAT[facility]ILD HEALTH [facility] 1.2.840.114 350.1.13.10 4.2.7.2.686 [id number] [facility] 2024-06-07 09:00:00 2024-06-07 09:00:00 Outpatient R KATHERINE ARCE [facility] [id number] [facility] 2024-04-29 00:00:00 2024-04-29 22:32:46 Case Management Katherine Arce 1.2.840.1 [id number] 3.104.2.7 .3.714424 .8 [id number] [facility] 2024-04-26 08:15:00 2024-04-26 09:12:17 Outpatient R KATHERINE ARCE [facility] [id number] [facility] 2024-04-26 08:15:00 2024-04-26 09:12:17 Office Visit Katherine Arce 1.2.840.1 [id number] 3.104.2.7 .3.390108 .8 [id number] [facility] 2024-04-26 00:00:00 2024-04-26 00:00:00 Scanned Documents Doctor Unassigned, [place] 1.2.840.1 97410.1.1 3.104.2.7 .3.498620 .8 [id number] [facility] 2024-04-26 00:00:00 2024-04-26 00:00:00 Travel 1.2.840.1 77091.1.1 3.104.2.7 .3.148285 .8 1.2.840.114 350.1.13.10 4.2.7.3.698 084.8 [id number] [facility] 2024-04-25 00:00:00 2024-04-25 00:00:00 Travel 1.2.840.1 57935.1.1 3.104.2.7 .3.656432 .8 1.2.840.114 350.1.13.10 4.2.7.3.698 084.8 [id number] [facility] 2024-03-07 09:15:00 2024-03-07 09:15:00 Outpatient HARRIET FULLER [facility] [id number] [facility] 2024-02-23 00:00:00 2024-02-23 08:17:50 Telephone Harriet Baxter [facility] [employer]ONE FINISHER [facility] & CHILD [facility] 1.2.840.114 350.1.13.10 4.2.7.2.686 [id number] [facility] 2024-02-23 00:00:00 2024-02-23 06:29:56 Case Management Harriet Baxter [facility] 1.2.840.114 350.1.13.10 4.2.7.2.686 [id number] [facility] 2024-02-22 09:45:00 2024-02-22 10:06:53 Outpatient R HARRIET BAXTER [facility] [id number] [facility] 2024-02-22 09:45:00 2024-02-22 10:06:53 Track Helper Visit Lab, Jeremy-Harriet Villagran Lab, [place] [facility] 1.2.840.114 350.1.13.10 4.2.7.2.686 [id number] 107 [id number] [facility] 2024-02-15 09:45:00 2024-02-15 10:30:39 Outpatient R HARRIET BAXTER [facility] [id number] [facility] 2024-02-15 09:45:00 2024-02-15 10:30:39 Routine Visit Harriet Baxter [facility] CON[facility]E STONE FINISHER [facility] 1.0.114 350.1.13.10 4.2.7.2.686 [id number] [facility] 2024-02-02 11:30:00 2024-02-02 11:45:00 Track Helper Visit Pob, Adc Lab Main Yuli Alford Pob, Adc [facility] Main [facility] 1..114 350.1.13.10 4.2.7.2.686 [id number] [facility] 2024-02-02 10:00:00 2024-02-02 10:15:00 Telemedici ne Visit Trimester, [facility] Res-1st Yuli Alford Trimester, [facility] Res-1st [facility] 1..114 350.1.13.10 4.2.7.2.686 [id number] 113 [id number] [facility] 2024-02-02 10:00:00 2024-02-02 10:00:00 Outpatient YULI VALENTINO YVETTE [facility] [id number] [facility] 2024-01-26 10:00:00 2024-01-26 12:23:04 Outpatient YULI VALENTINO YVETTE [facility] [id number] [facility] 2024-01-26 10:00:00 2024-01-26 12:23:04 Routine Visit Trimester, [facility] Res-1st Yuli Alford Trimester, [facility] Res-1st [facility] 1.0.114 350.1.13.10 4.2.7.2.686 [id number] [facility] 2024-01-19 09:00:00 2024-01-19 10:55:03 Outpatient R YULI ALFORD YVETTE [facility] [id number] [facility] 2024-01-19 09:00:00 2024-01-19 10:55:03 Routine Visit Trimester, [facility] Res-1st Yuli Alford Trimester, [facility] Res-1st [facility] 1.840.114 350.1.13.10 4.2.7.2.686 [id number] [facility] 2024-01-18 07:45:00 2024-01-18 08:54:14 Outpatient R HARRIET BAXTER [facility] [id number] [facility] 2024-01-18 07:45:00 2024-01-18 08:54:14 Initial Visit Harriet Baxter [facility] [employer] [employer]ONE FINISHER [facility] MAT[facility]NAL & CHILD HEALTH [facility] 1.840.114 350.1.13.10 4.2.7.2.686 [id number] [facility] 2024-01-17 00:00:00 2024-01-17 12:56:42 Telephone Beckie Qureshi [facility] [employer] [employer] FINISHER [facility] MATERNAL & CHILD [facility] .840.114 350.1.13.10 4.2.7.2.686 [id number] [facility] 2024-01-14 10:04:00 2024-01-14 15:34:00 Emergency X SYLVIA MONROE ERIN [facility] [id number] [facility] 2024-01-14 10:04:00 2024-01-14 15:34:00 Emergency Sylvia Monroe [facility] .840.114 350.1.13.10 4.2.7.2.686 [id number] [id number] [facility] 2024-01-09 11:11:00 2024-01-09 14:38:00 Emergency X ALICJA MOELLER [facility] E[facility] [id number] [facility] 2024-01-09 11:11:00 2024-01-09 14:38:00 Emergency Alicja Moeller [facility] 1.2.840.114 350.1.13.10 4.2.7.2.686 [id number] [id number] [facility] 2023-07-29 11:28:23 2023-07-29 11:28:23 Outpatient SFA [facility] [id number] Axel Null 2023-04-07 00:00:00 2023-04-07 00:00:00 Outpatient [facility] [id number] 2023-03-29 00:00:00 2023-03-29 00:00:00 Outpatient [facility] [id number] 2023-03-09 00:00:00 2023-03-09 00:00:00 Outpatient [facility] [id number] 2023-03-09 00:00:00 2023-03-09 00:00:00 Scarlett Heard, BJ, SILVER WRAPPER, SETTER OFF-C: Jonathan Rich[address], [address], [place] [address] , Ph. [facility], Scarlett Heard, BJ, SETTER OFF-C [id number] [facility] 2023-02-22 00:00:00 2023-02-22 00:00:00 Outpatient [facility] [id number] 2022-09-14 09:28:00 2022-09-15 19:55:00 Inpatient Katarzyna Turcios [facility] OB [id number] [facility] 2022-01-22 00:00:00 2022-01-22 00:00:00 Outpatient [facility] [id number] [facility] 2022-01-22 00:00:00 2022-01-22 00:00:00 Outpatient Scarlett Heard [facility] [id number] 2022-01-22 00:00:00 2022-01-22 00:00:00 Scarlett Heard, MSN, SILVER WRAPPER, SETTER OFF-C: Jonathan Richter, [address], [place] [address] , Ph. [facility], Scarlett Heard MSN, SETTER OFF-C [id number] [facility] 2022-01-08 00:00:00 2022-01-08 00:00:00 Outpatient RANJANSON_C [facility] [id number] [facility] 2022-01-08 00:00:00 2022-01-08 00:00:00 Scarlett Heard MSN, SILVER WRAPPER, SETTER OFF-C: Marj Nunez [address], [place] [address] , Ph. [facility], Scarlett Heard, MSN, SETTER OFF-C [id number] [facility] 2022-01-08 00:00:00 2022-01-08 00:00:00 Outpatient Scarlett Heard [facility] [id number] 2022-01-05 00:00:00 2022-01-05 00:00:00 Outpatient [facility] [id number] Tika Manley [facility] 2019-11-29 15:20:00 2019-11-29 15:20:00 Outpatient EMMANUEL YIP [facility] [id number] [facility] 2019-11-29 08:00:00 2019-11-29 08:00:00 Outpatient R [facility] [id number] [facility] 2019-11-15 11:20:00 2019-11-15 11:20:00 Outpatient R [facility] [id number] [facility] 2019-11-15 11:20:00 2019-11-15 11:20:00 Outpatient EMMANUEL YIP [facility] [id number] [facility] Results Test Description Test Time Test Comments Results Result Co mments Source [facility] [id number] 14:54:00* Test Item Value Reference Range Interpretation Comme nts POCT PREG (test code = 1605) Positive On board controls acceptable with C Line (test code = 3574) Yes POCT PREG LOT # (test code = 3575) POCT PREG TEST DATE ( test code = 3576) [facility] [id number] 15:25:00* Test Item Value Reference Range Interpretation Comme nts POCT PREG (test code = 1605) Positive On board controls acceptable with C Line (test code = 3574) Yes POCT PREG LOT # (test code = 3575) POCT PREG TEST DATE ( test code = 3576) [facility] [id number] 12:57:00* Test Item Value Reference Range Interpretation Comme nts POCT PREG (test code = 1605) Positive On board controls acceptable with C Line (test code = 3574) Yes POCT PREG LOT # (test code = 3575) POCT PREG TEST DATE ( test code = 3576) [facility] Urinalysis w/o Specific [id number] 12:57:00* Test Item Value Reference Range Interpretation Comme nts POCT PH U (test code = 3254) 8 mg/dl 5-8 POCT U LEUK EST (test code = 3263) 1+ Negative - Negative POCT U NIT (test code = 3262) Neg Negative - Negati ve POCT U PROT (test code = 3259) Trace Negative - Negat romina POCT U GLU (test code = 3256) Nml Negative - Negati ve POCT U KETONE (test code = 3258) None Negative - Neg ative POCT U BLD (test code = 3257) ~250 Negative - [facility]ati [facility] FIRST TRIMESTER LESS THAN 14 WEEKS WITH [id number] 20:17:15EXAM: US FIRST TRIMESTER LESS THAN 14 WEEKS WITH TRANSVAGINAL HISTORY: 33 years -old Female with vaginal bleeding . LMP = November 21, 2023. TECHNIQUE: Survey ultrasound imaging of the pelvis was performed includingcolor Doppler evaluation with ambulatory service representative images obtained. M-mode wasused toevaluate the heart. COMPARISON: None FINDINGS: Uterus: An intrauterine gestational sac is present. Mean sac diameter is 3.2 cm. Afetal pole was not visualized. There is a 7 mm yolk sac. Right Ad nexa:Ovary: The right ovary measures 3.8 x 2.6 x 4.3 ?cm. Multiple hypoechoic/cystic structures within the adnexa. Other: None Left Adnexa:Ovary: The left ovary measures 2.2 x 1.2 x 1.5 cm.Other: [facility]IMESTER LESS THAN 14 [id number] 18:51:33 EXAM: US FIRST TRIMESTER LESS THAN 14 WEEKS HISTORY: 33 years -old Female; left lower quadrant pain and bleeding. LMP =11/16/2023. Beta-hC,869 mIU/mL. G/P: . TECHNIQUE: Survey transabdominal and transvaginal ultrasound imaging andcolor Doppler evaluation of the pelvis was performed. M-mode was used toevaluate the heart. Transition Program Manager images were obtained. COMPARISON: Pelvic ultrasound dated 03/09/2019 FINDINGS: Uterus: The uterus measures 10.9 x 5.2 x 7 cm. An intrauterine gestational sac ispresent, with heterogenous internal echoes. The mean sac diameter measures3.2 cm. The lower uterine segment is mildly distended with hypoechoic fluid(image 114), likely representing subchorionic hemorrhage. No pole isidentified. No heart tones are detected. Right Adnexa:Ovary: The right ovary measures 4 x 2.8 x 2.7 cm. A simple cystic structureis seen in the rightovary, measuring 2.1 x 2.5 x 2.7 cm, compatible with adominant follicle. A paraovarian simple cystic structure is also noted,measuring 2.3 x 1.8 cm. Left Adnexa:Ovary: The left ovary measures 1.5 x 1.7 x 1.2 cm. The left ovary isunremarkable. Cul-de-sac: No free fluid is present.[facility] BETA HCG ASSAY 2024-01-09 17:58:52* Test Item Value Reference Range Interpretation Comme nts BETA HCG (test code = 8699016337) 9869.30 See_Comment [Automated SuitMea ge] The system which generated this result transmitted reference range: Non- female and male patients: <5 mIU/mL. The reference range was not used to interpret this result as normal/abnormal. RODRÍGUEZ (test code = RODRÍGUEZ) Gestational Age ?Range (mIU/mL) 1-10 ?Weeks ?20-95310401-77 Weeks ?75324-04019313-26 Weeks ?8266-97928246-84 Weeks ?5347-495079 Biotin has been reported to cause a negative bias, interpret results relative to patient's use of biotin. [facility]. METABOLIC PANEL (61913)2024-01-09 17:33:29* Test Item Value Reference Range Interpretation Comme nts NA (test code = 0874120290) 136 mmol/L 135-145 K (test code = 1341630122) 3.6 mmol/L 3.5-5.0 CL (test code = 1571973033) 103 mmol/L 98-108 CO2 TOTAL (test code = 3697613518) 19 mmol/L 23-31 L AGAP (test code = 3523875053) 14 2-16 BUN (test code = 8144214037) 9 mg/dL 7-23 GLUCOSE (test code = 1848176813) 92 mg/dL 70-110 CREATININE (test code = 2160-0) 0.64 mg/dL 0.50-1.04 TOTAL BILI (test code = 2545952581) 0.5 mg/dL 0.1-1.1 CALCIUM (test code = 1180629165) 9.2 mg/dL 8.6-10.6 T PROTEIN (test code = 9745808356) 8.0 g/dL 6.3-8.2 ALBUMIN (test code = 0446582176) 4.8 g/dL 3.5-5.0 ALK PHOS (test code = 4173411142) 63 U/L 34-122 ALTv (test code = 1742-6) 23 U/L 5-35 AST(SGOT) (test code = 3731974863) 23 U/L 13-40 eGFR (test code = 21803-2) 120.6 mL/min/1.73m2 CKD-EPI eGFR (2020). Assuming creatinine has been stable day-to-day for at least three months, the eGFR indicates Category G1 (>= 90 mL/min/1.73 m2) Lab Interpretation (test code = 55336-1) Abnormal [facility] WITH [id number] 17:13:09* Test Item Value Reference Range Interpretation Comme nts WBC (test code = 6690-2) 7.90 4.30-11.10 RBC (test code = 789-8) 4.24 3.93-5.25 HGB (test code = 718-7) 13.1 g/dL 11.6-15.0 HCT (test code = 4544-3) 38.9 % 35.7-45.2 MCV (test code = 787-2) 91.7 fL 80.6-95.5 MCH (test code = 785-6) 30.9 pg 25.9-32.8 MCHC (test code = 786-4) 33.7 g/dL 31.6-35.1 RDW-SD (test code = 66422-7) 45.1 fL 39.0-49.9 RDW-CV (test code = 788-0) 13.5 % 12.0-15.5 PLT (test code = 777-3) 337 166-358 MPV (test code = 27041-3) 9.4 fL 9.5-12.9 L NRBC/100 WBC (test code = 1547019475) 0.0 0.0-10.0 NRBC x10^3 (test code = 1338067515) See_Comment [Automated messa ge] The system which generated this result transmitted reference range: 10*3/?L. The reference range was not used to interpret this result as normal/abnormal. GRAN MAT (NEUT) % (test code = 770-8) 58.8 % IMM GRAN % (test code = 4302018955) 0.30 % LYMPH % (test code = 736-9) 33.8 % MONO % (test code = 5905-5) 5.2 % EOS % (test code = 713-8) 1.5 % BASO % (test code = 706-2) 0.4 % GRAN MAT x10^3(ANC) (test code = 1964658908) 4.65 10*3/uL 1.88-7.09 IMM GRAN x10^3 (test code = 4260519350) 0.00-0.06 LYMPH x10^3 (test code = 731-0) 2.67 10*3/uL 1.32-3.29 MONO x10^3 (test code = 742-7) 0.41 10*3/uL 0.33-0.92 EOS x10^3 (test code = 711-2) 0.12 10*3/uL 0.03-0.39 BASO x10^3 (test code = 704-7) 0.03 10*3/uL 0.01-0.07 Lab Interpretation (test code = 93903-3) Abnormal [facility] - ONCE [id number] 17:03:00* Test Item Value Reference Range Interpretation Comme nts ABO & RH (test code = 20) A POSITIVE IAT (test code = 1185) Negative [facility] [id number] 16:49:00* Test Item Value Reference Range Interpretation Comme nts POCT PREG (test code = 1605) Positive On board controls acceptable with C Line (test code = 3574) Yes Lab Interpretation (test cod e = 02127-0) Normal [facility]OLIC [id number] 00:00:00* Test Item Value Reference Range Interpretation Comme nts GLUCOSE (test code = 2217) 80 MG/DL BUN (test code = 2208) 17 MG/DL CREATININE (test code = 2214) 0.72 MG/DL eGFR (2020 CKD-EPI) (test code = 88501) 115 ML/MIN/1.73 CALC BUN/CREAT (test code = 2235) 24 RATIO SODIUM (test code = 2231) 137 MEQ/L POTASSIUM (test code = 2228) 4.0 MEQ/L CHLORIDE (test code = 2215) 99 MEQ/L CARBON DIOXIDE (test code = 2206) 23 MEQ/L CALCIUM (test code = 2209) 9.9 MG/DL PROTEIN, TOTAL (test code = 2229) 7.5 G/DL ALBUMIN (test code = 2201) 4.9 G/DL CALC GLOBULIN (test code = 2240) 2.6 G/DL CALC A/G RATIO (test code = 2234) 1.9 RATIO BILIRUBIN, TOTAL (test code = 2207) 0.3 MG/DL ALKALINE PHOSPHATASE (test code = 2204) 82 U/L AST (test code = 2218) 16 U/L ALT (test code = 2219) 15 U/L Axel NullPROTIME AND [id number] 00:00:00* Test Item Value Reference Range Interpretation Comme nts PROTHROMBIN TIME (PT) (test code = 1402) 13.2 SECONDS INR (test code = 00540) 1.0 PTT (test code = 1403) 28.8 SECONDS Axel NullCBC W/AUTO [id number] 00:00:00* Test Item Value Reference Range Interpretation Comme nts WBC (test code = 1001) 8.8 K/UL RBC (test code = 1002) 4.10 M/UL HEMOGLOBIN (test code = 1003) 12.8 G/DL HEMATOCRIT (test code = 1004) 37.7 % MCV (test code = 1005) 92.0 fL MCH (test code = 1006) 31.2 PG MCHC (test code = 1007) 34.0 G/DL RDW (test code = 1038) 12.6 % NEUTROPHILS (test code = 1008) 59.8 % LYMPHOCYTES (test code = 1010) 34.4 % MONOCYTES (test code = 1011) 4.6 % EOSINOPHILS (test code = 1012) 0.5 % BASOPHILS (test code = 1013) 0.5 % IMMATURE GRANULOCYTES (test code = 1036) 0.2 % NUCLEATED RBCS (test code = 1065) 0.0 /100WBC'S PLATELET COUNT (test code = 1015) 411 K/UL ABSOLUTE NEUTROPHILS (test c ode = 1066) 5.28 K/UL ABSOLUTE LYMPHOCYTES (test c ode = 1067) 3.03 K/UL ABSOLUTE MONOCYTES (test cod e = 1068) 0.41 K/UL ABSOLUTE EOSINOPHILS (test c ode = 1040) 0.04 K/UL ABSOLUTE BASOPHILS (test cod e = 1069) 0.04 K/UL ABS IMMATURE GRANULOCYTES (t est code = 1020) 0.02 K/UL ABS NUCLEATED RBCS (test cod e = 92132) 0.00 K/UL Axel Machado [id number] 13:10:00* Test Item Value Reference Range Interpretation Comme nts SURGICAL (test code = SR) R UN DATE: 09/21/22 [facility] PAGE 1 RUN TIME: 1310 Specimen Inquiry RUN USER: INTERFACE Josiah ATIENT: LIZBETH PILLAIT #: [id number] LOC: MARISOL Isaacs #: [id number] AGE/SX: 31/F ROOM: [facility] RE09/14/22REG DR: Katarzyna Cunningham MD : 91 BED: A DIS: 09/15/22 STATUS: DIS IN TLOC: SPEC #: [id number] RECD: 09/15/22 STATUS: DARRICK SHUKLA #: [id number] DESIREE: 09/14/22-[address]: Katarzyna Cunningham MD ENTERED: 09/15/22 SP TYPE: SURGICAL OTHR DR: ORDERED: ANATOMIC SPEC, SPEC TRACK, [id number] PROCEDURES: [id number] (09/15/22) TISSUES: A. PLACENTA, THIRD TRIMESTER (28 + WEEKS) FINAL DIAGNOSIS A. PLACENTA, DELIVERY: - Villous development compatible with middle of 3rd trimester, delayed maturation - Intervillous thrombi, two, each 1 cm diameter - Chorioamnionic membranes with meconium pigment - Trivascular umbilical cord lacking pathologic abnormalities Comment:The weight 455 g is between the 50th and 75th percentiles for the stated gestational age of37 weeks. GROSS DESCRIPTION The specimen is received in formalin labeled with the patient's name and "placenta". Received is a trent placenta with attached membranes and umbilical cord with atrimmed placental weight of 455 g and measuring 18.2 x 15.3 x 3.1 cm. The membranesare pink-tipton, translucent in appearance, and the site of membrane rupture is at theplacental margin. The surface is intact displaying a normal arborizing vasculaturepattern, as well as scattered focal fibrin deposition. The trivascular umbilical cordmeasures 42.6 cm in length and ranges in diameter from 1.0-1.3 cm displaying a slightlyeccentric insertion, 4.6 cm from the closest placental margin. The umbilical cord hasthree clamps present, is pale ibarra in appearance with moderate helical twisting(approximately 3.5 twists every 10 cm). The maternal surface is intact and complete with aslight amount of adherent blood coagulum. Sectioning reveals pink-red to red-brown cutsurfaces with an area of hemorrhage measuring 1.0 cm, which encompasses less than 5% of thetotal placental volume. The specimen is submitted representatively as follows: A1 umbilical cord and membrane rollA2-A3 full-thickness placental cross-section, divided into and maternal aspectsA4 additional section of maternal surface, with area of hemorrhage.(CAA; 09/15/2022) Technical component performed at [facility] [address], [place] [address] CONTINUED ON NEXT PAGE R UN DATE: 09/21/22 [facility] PAGE 2 RUN TIME: 1310 Specimen Inquiry RUN USER: INTERFACE S PEC #: [id number] PATIENT: PILLAIJERPk SOTO #[id number] (Continued) GROSS DESCRIPTION (Continued) Immunohistochemical stains and Special Stains are performed at [facility], [address], [address], [place] [address] Unless gross only, the diagnosis is based upon microscopic examination. Immunohistochemistry: This test was developed and its performance characteristicsdetermined by this laboratory. It has not been approved nor does it need approval by [place] FDA. Appropriate positive and negative controls are reviewed and judged to beacceptable. This laboratory is certified under the Clinical Laboratory ImprovementAmendments (CLIA-88) as qualified to perform high complexity clinical laboratory testing. CLINICAL INFORMATION 09/14/22, PLACENTAL ABRUPTION AND PLACENTAL LAKES, , 37.3 WEEKS, SPONTANEOUS VAGINALDELIVERY. Signed SIGNATURE ON FILE Jason Kruger 09/21/22 1310 END OF REPORT CBC W/AUTO [id number] 07:44:00* Test Item Value Reference Range Interpretation Comme nts WHITE BLOOD CELL (test code = WBC) 11.8 K/mm3 6.5-12.3 N RED BLOOD CELL (test code = RBC) 4.19 M/mm3 3.51-4.69 N HEMOGLOBIN (test code = HGB) 12.6 g/dL 10.1-13.8 N HEMATOCRIT (test code = HCT) 37.3 % 32.5-41.8 N MEAN CELL VOLUME (test code = MCV) 89.0 fL 84.6-96.6 N MEAN CELL HGB (test code = MCH) 30.1 pg 27.3-33.9 N MEAN CELL HGB CONCETRATION ( test code = MCHC) 33.8 gm/dL 32.0-34.2 N RED CELL DISTRIBUTION WIDTH (test code = RDW) 12.8 % 12.2-16.3 N PLATELET COUNT (test code = PLT) 266 K/mm3 134-363 N MEAN PLATELET VOLUME (test c ode = MPV) 9.8 fL 9.2-12.7 N NEUTROPHIL % (test code = NT%) 68.4 % 57.9-77.3 N LYMPHOCYTE % (test code = LY%) 23.6 % 14.5-29.7 N MONOCYTE % (test code = MO%) 5.7 % 3.6-10.2 N EOSINOPHIL % (test code = EO%) 1.5 % 0.0-3.0 N BASOPHIL % (test code = BA%) 0.3 % 0.1-0.9 N NEUTROPHIL # (test code = NT#) 8.1 K/mm3 LYMPHOCYTE # (test code = LY#) 2.8 K/mm3 MONOCYTE # (test code = MO#) 0.7 K/mm3 EOSINOPHIL # (test code = EO#) 0.18 K/mm3 BASOPHIL # (test code = BA#) 0.0 K/mm3 RBC MORPHOLOGY REQUIRED (clark t code = RBCM) NORMAL NORMAL PLATELET MORPHOLOGY REQUIRED (test code = PLTMR) NORMAL NORMAL AG HEPATITIS B [id number] 12:14:00* Test Item Value Reference Range Interpretation Comme nts AG HEPATITIS B SURFACE (test code = HBSAG) NONREACTIVE NONREACTIVE AB HEPATITIS C [id number] 12:14:00* Test Item Value Reference Range Interpretation Comme nts AB HEPATITIS C (test code = HCVAB) NONREACTIVE NONREACTIVE SIGNAL TO CUTOFF (test code = CUTOFF) 0.11 <0.80 N AB [id number] 12:14:00* Test Item Value Reference Range Interpretation Comme nts AB TREPONEMA (test code = TREPAB) NONREACTIVE NONREACTIVE AB HIV 1 12:14:00* Test Item Value Reference Range Interpretation Comme nts AB HIV 1 2 (test code = TLH71AS) NONREACTIVE NONREACTIVE Done by [employer]igo[employer]ision[employer]-Squared 4th Gen HIV Ag/Ab Combo Screen CBC W/AUTO [id number] 10:39:00* Test Item Value Reference Range Interpretation Comme nts WHITE BLOOD CELL (test code = WBC) 10.2 K/mm3 6.5-12.3 N RED BLOOD CELL (test code = RBC) 4.05 M/mm3 3.51-4.69 N HEMOGLOBIN (test code = HGB) 12.2 g/dL 10.1-13.8 N HEMATOCRIT (test code = HCT) 35.7 % 32.5-41.8 N MEAN CELL VOLUME (test code = MCV) 88.1 fL 84.6-96.6 N MEAN CELL HGB (test code = MCH) 30.1 pg 27.3-33.9 N MEAN CELL HGB CONCETRATION ( test code = MCHC) 34.2 gm/dL 32.0-34.2 N RED CELL DISTRIBUTION WIDTH (test code = RDW) 12.8 % 12.2-16.3 N PLATELET COUNT (test code = PLT) 288 K/mm3 134-363 N MEAN PLATELET VOLUME (test c ode = MPV) 9.5 fL 9.2-12.7 N NEUTROPHIL % (test code = NT%) 75.0 % 57.9-77.3 N LYMPHOCYTE % (test code = LY%) 19.1 % 14.5-29.7 N MONOCYTE % (test code = MO%) 4.4 % 3.6-10.2 N EOSINOPHIL % (test code = EO%) 0.7 % 0.0-3.0 N BASOPHIL % (test code = BA%) 0.3 % 0.1-0.9 N NEUTROPHIL # (test code = NT#) 7.7 K/mm3 LYMPHOCYTE # (test code = LY#) 2.0 K/mm3 MONOCYTE # (test code = MO#) 0.5 K/mm3 EOSINOPHIL # (test code = EO#) 0.07 K/mm3 BASOPHIL # (test code = BA#) 0.0 K/mm3 RBC MORPHOLOGY REQUIRED (lcark t code = RBCM) NORMAL NORMAL PLATELET MORPHOLOGY REQUIRED (test code = PLTMR) NORMAL NORMAL SARS-CoV-2 (COVID-19) by RT-PCR (HIGH RISK)2021-01-14 00:00:00* Test Item Value Reference Range Interpretation Comme nts SARS-CoV-2 INTERPRETATION (test code = 28829) POSITIVE SOURCE (test code = 49351) NASOPHARYNGEAL Axel Null Notes Date/Time Note Provider Source Axel Null [facility]2025-03-03 10:22:38 Pt called and notified by provider Please notify the patient of UTI, meds have been sent to the pharmacy. Please advise the patient on good perineal hygiene, drinking plenty of water, and completing the entire course of treatment. KRZYSZTOF Armendariz 07/23/2024 10:22 AM [facility]2024-10-03 08:17:28 Pt informed of results and need for repeat beta, lab appt made for 2 weeks. Alana Canales [facility]2024-10-03 06:30:11 Please call patient and let her beta hcg is decreasing but not <5 yet. She needs lab only visit in 2 weeks. [facility]2024-09-12 11:30:00 Images from the original note were not included. Venipuncture collection performed by clean technique on the right anticubitus. Total of 1 attempts were made. Slight pressure and a bandage/dressing were applied to the site(s). The patient experienced no complications. The following specimens were processed according to instructions and sent to [facility] laboratories per lab order on 02/02/2024: LT BLUE SST 1 RED LAV 1 PPT DK GREEN (LiHep) DK GREEN (SodH) TIPTON DK BLUE (K2) DK BLUE (S) ACD Blood Culture NIPT/NTD T [place] 021114-08-27 12:56:33 Noted. Alana [facility]ELake[facility] [id number] 12:19:54 Called and scheduled appointment for New Ob. Moe Rodrí[facility]uezMer[facility] HospitalLuuvrz6444-69-62 09:09:18 Please advised, we have not seen patient for care, would be consider New Ob/New Research Professor. [facility] [id number] 08:59:48 Pt requesting call back states she was seen in er and was told she has an empty sack and possibly had a miscarriage and was told to schedule appt to check hcg levels. Pt had already applied for medicaid application #[id number] but has not been approved yet. Please advise [phone] (home) Chaya SyedMercy Health Lorain HospitalSatqvo5957-68-82 15:34:35 PT D/C home. GCS15, VS stable, no ataxia noted. Given no prescriptions and D/C paperwork. Pt ambulatory at time of discharge. Pt educated on miscarriage, med usage, follow up care with OB, s/s worsening condition. Pt verbalized understanding. Lizet Tao RNMercy Health Lorain HospitalUotfpw8540-11-93 10:02:31 Patient to ED because she was told to be checked out in 3 days to make sure her miscarriage was complete. She did not go to OBGYN and said she was told she could come back here and we would check her out again. No fever or vomiting but reports brown discharge. Last period was 11/21/23. Gabino Miranda [facility] ClevelandBteyyb3746-70-49 14:30:32 Summary: Discharge Pt given printed and verbal discharge instructions regarding misscarriage, encouraged hydration, Prescriptions provided none Discussed ibuprofen and to take with food to avoid GI distress. Pt verbalized understanding of instructions, pt awake alert oriented, resp reg unlabored, skin w/d, color appropriate for race, moves all ext well,pt encouraged to follow up with pcp Advised to seek medical attention for new/prolonged/worsening of symptoms, Symptoms No adverse reaction to meds given in ER noted upon discharge PIV d'cd, dressing to site, catheter in tact. Awake, alert oriented, resp reg unlabored, skin w/d, pt leaving amb with steady gait, in no apparent distress, Karen Dozier [facility] ClevelandRgjrxq4714-09-29 11:10:34 Patient states: "Over a week ago I had been bleeding consistently and then it tapered off. I was bleeding yesterday but it stopped today. I'm having pain in my left side where my ovary is and I'm concerned that I'm having an ectopic . I've had a confirmation of at the [facility] center. I'm around 7-8 weeks " G 6 P 5 A 0 Pmhx: subchorionic hematoma in , Bella Chavez [facility] - [id number] 17:21:00 [facility] ([facility]) OB Disch REPORT#:[id number] REPORT STATUS: Signed DATE:09/15/22 TIME: 1720 PATIENT: LIZBETH PILLAI UNIT #: [id number] ROOM/BED: [address] : [address] AGE: 31 SEX: F ATTEND: Katarzyna Cunningham MD ADM AUTHOR: Katarzyna Cunningham MD * ALL edits or amendments must be made on the electronic/computer document * Subjective Subjective Patient reports: Patient reports: Yes: normal lochia, pain management effective, voiding well, voiding without pain, tolerating ambulation, flatus. No: complaints. Comments: seen around 8am Objective General VS: Vital Signs Date Temp Pulse Resp B/P B/P Mean Pulse Ox FiO2 09/14-09/15 97.5-98.1 64-86 18 105-138/60-75 80.0-97.0 Last Documented: Result Date Time B/P 113/74 09/15 0840 Temp 97.5 09/15 0840 Pulse 69 09/15 0840 Resp 18 09/15 0840 B/P Mean 81.7 09/15 0436 PATIENT WEIGHT: Weight (lb): 207 Weight (oz): Weight (kg): 93.894331 Physical Exam Neuro: Exam: alert, oriented x3, normal speech Uterus: involution appropriate, non-tender Fundus: firm, below the umbilicus, non-tender Lower extremities: Edema: trace Calf tenderness: negative Discharge Summary General Hospital course: induction of labor, spontaneous vag delivery, nml postop/ postpart care Discharge to: Home/Self Care Discharge diagnosis: full-term uncomp delivery Baby A: Vaginal delivery: spontaneous status: live born Gender: female Plan: routine care, discharge tomorrow Vaginal packing at delivery: No Discharge Instructions Diet: Regular Activity: As Tolerated, No Driving, No [place] for 6 Wks Additional discharge routines: PCP Follow-Up Discharge meds: Continue taking these medications: PNV WITH CA/IRON/FA/DHA (PRENATE ESSENTIAL) 28 MG IRON-1 MG-300 MG CAP 1 CAPSULE ORAL DAILY. Start taking the following new medications: IBUPROFEN (MOTRIN) 600 MG TAB 600 MILLIGRAM ORAL EVERY 6 HOURS NEEDED. as needed for CRAMPING Qty = 25 No Refills Add'l Follow-up Appointments PCP follow-up: PCP: Katarzyna Cunningham MD PCP follow up timeframe: 4 weeks with our MEEK SOTO at 1723 RPT #:[id number] END OF REPORT [id number] 16:58:00 [facility] ([facility]) OB Delivery Note REPORT#:[id number] REPORT STATUS: Signed DATE:09/14/22 TIME: 1657 PATIENT: LIZBETH PILLAI UNIT #: [id number] ROOM/BED: [address] : [address] AGE: 31 SEX: F ATTEND: Katarzyna Cunningham MD ADM AUTHOR: Katarzyna Cunningham MD * ALL edits or amendments must be made on the electronic/computer document * OB Delivery Pre-delivery GBS status: GBS status: unknown Blood Loss/Details Blood loss at delivery: <1K: no sx hypovol=no hem EBL at delivery (ml's): 350 Baby A Information Baby A information Delivery date: 09/14/22 Delivery time: 1635 status: live born Gender: female Presentation: vertex Nuchal cord Baby A Nuchal cord: yes (loose and reduced) Vaginal Delivery Vaginal Delivery Vaginal delivery: Labor: induced Medications/Devices used: oxytocin Vaginal delivery: spontaneous Amniotic fluid: clear Anesthesia type: epidural anesthesia Episiotomy: none Placenta: spontaneous, intact, sent to pathology Post delivery meds used: oxytocin, methergine Count: correct Vaginal packing: No Mother's condition: mother stable Infant's condition: infant stable in room Lacerations: Perineal laceration(s): NONE High vaginal laceration: no at 1700 RPT #:[id number] END OF REPORT [id number] 16:55:00 [facility] ([facility]) OB Admission / H P REPORT#:[id number] REPORT STATUS: Signed DATE:09/14/22 TIME: 1654 PATIENT: LIZBETH PILLAI UNIT #: [id number] [facility] AGE: 31 SEX: F ATTEND: Katarzyna Cunningham MD ADM AUTHOR: Emmanuel Gonzales MD * ALL edits or amendments must be made on the electronic/computer document * OB History Chief complaint: scheduled induction HPI: 31 y/o EDC 09-29-22 [facility] at 37 6/7 weeks admitted for induction of labor. has occ ctx. no bleeding or srom. good fm. sees dr cunningham for abruption at 14 wks history: : 6 Term: 4 Abortus: 1 Living children: 4 Comments: at term x 4 sp ab x 1 Notes: pnc w dr cunningham uncomplicated Past History Additional Medical History: none Additional Surgical History: none Additional Social History: no tob, alc da Allergies: Coded Allergies: No Known Allergies (09/14/22) Review of Systems All systems rev neg: except as marked Objective General VS: Last Documented: Result Date Time B/P Mean 72.0 09/14 1554 B/P 101/57 09/14 1554 Pulse 77 09/14 1554 Temp 97.5 09/14 1430 Resp 18 09/14 1430 Vital Signs Date Temp Pulse Resp B/P B/P Mean Pulse Ox FiO2 09/14 97.5-97.7 69-91 18 97-129/55-82 70.0-101.0 PATIENT WEIGHT: Weight (lb): 207 Weight (oz): Weight (kg): 93.529442 Physical Exam HEENT: normocephalic w/o injury Cardiac: regular rate and rhythm Lungs: clear to auscultation Abdomen: gravid, no abnormal tenderness Cervical/ exam: Dilatation (cm): 4 Effacement (%): 70 station: - 2 presentation: cephalic Membranes: Membranes: AROM (clear, iupc placed) Lower extremities: Edema: trace Calf tenderness: negative Baby A: Baby A FHR category: category 1 Results Findings/Data: Laboratory Tests: 09/14 1017 Hematology WBC (6.5 - 12.3 K/mm3) 10.2 RBC (3.51 - 4.69 M/mm3) 4.05 Hgb (10.1 - 13.8 g/dL) 12.2 Hct (32.5 - 41.8 %) 35.7 MCV (84.6 - 96.6 fL) 88.1 MCH (27.3 - 33.9 pg) 30.1 MCHC (32.0 - 34.2 gm/dL) 34.2 RDW (12.2 - 16.3 %) 12.8 Plt Count (134 - 363 K/mm3) 288 MPV (9.2 - 12.7 fL) 9.5 Neut % (Auto) (57.9 - 77.3 %) 75.0 Lymph % (Auto) (14.5 - 29.7 %) 19.1 Hod[place]eman % (Auto) (3.6 - 10.2 %) 4.4 Eos % (Auto) (0.0 - 3.0 %) 0.7 Baso % (Auto) (0.1 - 0.9 %) 0.3 Neut # (Auto) (K/mm3) 7.7 Lymph # (Auto) (K/mm3) 2.0 [place] # (Auto) (K/mm3) 0.5 Eos # (Auto) (K/mm3) 0.07 Baso # (Auto) (K/mm3) 0.0 Serology Treponema pallidum Ab (NONREACTIVE) NONREACTIVE Hep Bs Antigen (NONREACTIVE) NONREACTIVE Hepatitis C Antibody (NONREACTIVE) NONREACTIVE Hep C Ab Signal/Cutoff (<0.80) 0.11 HIV 1 2 Antibody (NONREACTIVE) NONREACTIVE Diagnosis, Assessment Plan Diagnosis, Assessment Plan Free Text A P: 31 y/o EDC 5-- [facility] at 37 6/7 weeks admitted for induction of labor. reassuring fht PLAN- cont pit, anticipate Dr cunningham aware at 1659 RPT #:[id number] END OF REPORT [id number] 16:54:00 [facility] ([facility]) OB Admission / H P REPORT#:[id number] REPORT STATUS: Signed DATE:09/14/22 TIME: 1654 PATIENT: LIZBETH PILLAI UNIT #: [id number] ROOM[facility]BED: [facility] : 91 AGE: 31 SEX: F ATTEND: Katarzyna Cunningham MD ADM AUTHOR: Katarzyna Cunningham MD * ALL edits or amendments must be made on the electronic/computer document * OB History Chief complaint: scheduled induction HPI: 31 y old at 37.3 weeks with suspected chroic partial abruption , short long bones and placental lakes, no complants OHX: X 4 and EAB x 1, prior with osteogenesis imperfecta Past History Past Medical History: Denies: Alcoholism/subst abuse, Anemia, Arthritis, Asthma, Atrial fibrillation, Cancer, Congestive heart failure, COPD, Coronary artery disease, Dementia, Depression/mood disorder, Diabetes mellitus, GERD/gastritis, Hypertension, Kidney disease/stones, Seizure disorder, Transient ischemic attack, , Abdominal aortic aneurysm, ADD/ADHD, AIDS, Angina pectoris, Anticoagulant therapy, Atrial flutter, Bleeding disorder, BPH, C diff colitis, Cardiac dysrhythmias, Chronic pain, Cirrhosis, Congenital anomalies, Dyslipidemia, Gallbladder dis/stones, GI bleed, Glaucoma, Headache disorder, Hepatitis, HIV, Intracranial hemorrhage, Ischemic stroke, Motor dysfunction, Pancreatitis, Peptic ulcer disease, Periph arterial disease, Pressure ulcer, Prior [place], Schizophrenia, Sickle cell disease, Steroid use, Thyroid disorder, Transfusion history, Tuberculosis, Urinary tract infection, Venous thromboembolism. Additional Surgical History: D C x 1 Alcohol Use Denies EtOH use Drug Use Denies recreational drugs Smoking status for patients 13 years old or older: Never Smoker Allergies: Coded Allergies: No Known Allergies (09/14/22) Objective General VS: Last Documented: Result Date Time B/P Mean 72.0 09/14 1554 B/P 101/57 09/14 1554 Pulse 77 09/14 1554 Temp 97.5 09/14 1430 Resp 18 09/14 1430 Vital Signs Date Temp Pulse Resp B/P B/P Mean Pulse Ox FiO2 09/14 97.5-97.7 69-91 18 97-129/55-82 70.0-101.0 PATIENT WEIGHT: Weight (lb): 207 Weight (oz): Weight (kg): 93.127587 Physical Exam HEENT: normocephalic w/o injury Cardiac: regular rate and rhythm Lungs: clear to auscultation Neuro: Exam: alert, oriented x3, normal speech Abdomen: gravid, soft, no abnormal tenderness Diagnosis, Assessment Plan Diagnosis, Assessment Plan Assessment/Impression: IUP 37.3 WEEKS, PLACETAL LAKES VS CHRONIC PARTIAL ABRUPTION, ADEQUATE PELVIS Plan: arom WAS DONE DBY DR GONZALES EARLIER, CX WAS 4 CM DILATED, ON PITOCIN AND GBS PROPHYLAXIS HERI UNKNOWN GBS , SHE WAS A PATIENT OF DR WHITLEY at 1658 RPT #:[id number] END OF REPORT [facility]
[2024-09-16] MEDS ORDERED: ACETAMINOPHEN 500 MG TAB ONE (06:06)
[2024-09-16] MEDS ORDERED: KETOROLAC 30 MG/ML INJ ONE (06:06)
[2024-09-16] MEDS ORDERED: NA CHLORIDE 0.9% 1,000 ML ONE (06:06)
[2024-09-16 06:19] LABS: Absolute Lymphocytes (CBC) 0.8 K/uL (0.7-4.9); Absolute Monocytes 0.5 K/uL (0.1-1.3); Absolute Neutrophil 2.9 K/uL (1.8-8.0); Basophils % 0.6 % (0-1.3); Eosinophils % 1.1 % (0-4.4); Hemoglobin 13.9 g/dL (12.0-15.0); Lymphocytes % 18.7 % (15.3-44.8); MCH 33.3 pg (27.0-35.0); MCHC 36.9 g/dL (32.0-36.0); MCV 90.4 fL (80-100); MPV 7.4 fL (7.6-11.3); Monocytes % 10.8 % (3.3-12.3); Neutrophils % 68.8 % (41.7-73.7); Nucleated Red Blood Cells % 0.1 % (0-0); Platelets 279 thou/uL (152-406); RBC Red Blood Cell Count 4.18 M/uL (3.86-4.86); Red Cell Distribution Width 12.8 % (12.1-15.2)
[2024-09-16 06:22] LABS: Hematocrit 39.8 % (36.0-45.0)
[2024-09-16 06:31] LABS: ALT/SGPT 21 U/L (13-56); AST/SGOT 11 U/L (15-37); Albumin 3.8 g/dL (3.4-5.0); Albumin/Globulin Ratio 1.1 (1.1-1.8); Alkaline Phosphatase 76 U/L (45-117); Anion Gap 8.8 mEq/L (5.0-15.0); BUN Blood Urea Nitrogen 10 mg/dL (7-18); Bicarbonate 24 mEq/L (21-32); Bilirubin Total 0.3 mg/dL (0.2-1.0); Globulin 3.5 g/dL (2.3-3.5); Glomerular Filtration Rate 97 ml/min (=/>90); Glucose Level 92 mg/dL (74-106); Potassium 3.8 mEq/L (3.5-5.1); Protein, Total 7.3 g/dL (6.4-8.2); Sodium Level 135 mEq/L (136-145)
[2024-09-16 06:48] LABS: Bilirubin Direct < 0.2 mg/dL (0-0.2); Bilirubin Indirect, Calculated 0.1 mg/dL (0.2-0.8); Troponin High Sensitivity < 3.0 pg/mL (<58.9)
[2024-09-16 07:25] LABS: Influenza A Ag Negative; Influenza B Ag Negative; SARS-CoV-2 Antigen Rapid Res Negative (Negative)
--- NOTE | 2024-09-16 07:38 | EDPHYS ---
Physician Documentation [facility] Name: Twila Amor Age: 33 yrs Sex: Female : 1990 Arrival Date: 09/16/2024 Time: 05:36 Bed 13 Private MD: SHELBY Physician Hung Skaggs HPI: 09/16 06:11 This 33 yrs old Female presents to ER via Ambulatory with complaints of Fever, rt Headache, Chills, Weakness. 06:11 Over the past 4 days, the patient has developed a headache, cough, chills, fever. rt Patient's children have similar symptoms. States that symptoms have worsened today, no adequate relief with ibuprofen or Tylenol. Denies other acute complaints of symptoms are moderate severity, no other aggravating or alleviating factors.. Historical: - Allergies: 06:08 No Known Allergies; ha1 - PMHx: 06:08 None; ha1 - PSHx: 06:08 None; ha1 - Immunization history:: Adult Immunizations up to date. - Infectious Disease History:: Denies. - Social history:: Smoking status: Patient denies any tobacco usage or history of. - Family history:: not pertinent. ROS: 06:11 Cardiovascular: Negative for chest pain, palpitations, and edema, Respiratory: Negative rt for shortness of breath, cough, wheezing, and pleuritic chest pain, Abdomen/GI: Negative for abdominal pain, nausea, vomiting, diarrhea, and constipation, Skin: Negative for injury, rash, and discoloration, 06:11 Constitutional: Positive for chills, fever, 06:11 Neuro: Positive for headache, Negative for loss of consciousness, Exam: 06:11 Constitutional: This is a well developed, well nourished patient who is awake, alert, rt and in no acute distress. Head/Face: Normocephalic, atraumatic. Chest/axilla: Normal chest wall appearance and motion. Nontender with no deformity. No lesions are appreciated. Cardiovascular: Regular rate and rhythm with a normal S1 and S2. No gallops, murmurs, or rubs. Normal PMI, no JVD. No pulse deficits. Respiratory: Lungs have equal breath sounds bilaterally, clear to auscultation and percussion. No rales, rhonchi or wheezes noted. No increased work of breathing, no retractions or nasal flaring. Abdomen/GI: Soft, non-tender, with normal bowel sounds. No distension or tympany. No guarding or rebound. No evidence of tenderness throughout. Back: No spinal tenderness. No costovertebral tenderness. Full range of motion. Skin: Warm, dry with normal turgor. Normal color with no rashes, no lesions, and no evidence of cellulitis. MS/ Extremity: Pulses equal, no cyanosis. Neurovascular intact. Full, normal range of motion. Neuro: Awake and alert, GCS 15, oriented to person, place, time, and situation. Cranial nerves II-XII grossly intact. Motor strength 5/5 in all extremities. Sensory grossly intact. Cerebellar exam normal. Normal gait. 06:11 Neck: Full range of motion, no meningismus, 06:11 ECG was reviewed by the Attending Physician. Vital Signs: 05:42 BP 116 / 78; Pulse 118; Resp 19 S; Temp 99.8(O); Pulse Ox 97% on R/A; Weight 81.65 kg; ha1 Height 5 ft. 4 in. ; 06:47 BP 117 / 77; Pulse 86; Resp 18; Pulse Ox 97% ; cp4 07:56 BP 127 / 79; Pulse 84; Resp 16; Pulse Ox 99% on R/A; iw 05:42 Body Mass Index 30.90 (81.65 kg, 162.56 cm) ha1 MDM: 05:50 Medical Screening Exam initiated rt 09/16 05:54 Order name: Basic Metabolic Panel; Complete Time: 07:07 rt 09/16 05:54 Order name: CBC with Diff; Complete Time: 07:07 rt 09/16 05:54 Order name: LFT's; Complete Time: 07:07 rt 09/16 05:54 Order name: Troponin HS; Complete Time: 07:07 rt 09/16 05:54 Order name: COVID-19 Ag + Flu A+B Ag; Complete Time: 07:27 rt 09/16 05:54 Order name: XRAY Chest (1 view) rt 09/16 05:54 Order name: Cardiac monitoring; Complete Time: 06:04 rt 09/16 05:54 Order name: EKG - Nurse/Tech; Complete Time: 06:04 rt 09/16 05:54 Order name: IV Saline Lock; Complete Time: 06:04 rt 09/16 05:54 Order name: Labs collected and sent; Complete Time: 06:04 rt 09/16 05:54 Order name: O2 Per Protocol; Complete Time: 06:04 rt 09/16 05:54 Order name: O2 Sat Monitoring; Complete Time: 06:04 rt EC:11 Rate is 114 beats/min. Rhythm is regular, Sinus tachycardia with No ectopy. QRS [place] is rt Normal. PA interval is normal. QRS interval is normal. QT interval is normal. No Q waves. T waves are Normal. No ST changes noted. Interpreted by me. Administered Medications: 06:11 Drug: Ketorolac IVP 15 mg IVP once Route: IVP; Site: right antecubital; cp4 06:11 Drug: Acetaminophen PO 1000 mg PO once Route: PO; cp4 06:11 Drug: NS 0.9% IV 1000 ml IV at 1 bolus Per protocol; to be given as a bolus over 60 cp4 minutes Route: IV; Rate: 1 bolus; Site: right antecubital; 07:40 Follow up: IV Status: Completed infusion iw Disposition Summary: 09/16/24 07:37 Discharge Ordered Notes: Location: Home [facility] Problem: new veronika Symptoms: have improved veronika Condition: Stable veronika Diagnosis - Fever, unspecified veronika - Acute upper respiratory infection, unspecified veronika - Cough veronika Followup: veronika - With: Private Physician - When: 2 - 3 days - Reason: Recheck today's complaints, Continuance of care, Re-evaluation by your physician Discharge Instructions: - Discharge Summary Sheet veronika - Fever, Adult veronika - Upper Respiratory Infection, Adult veronika - Viral Respiratory Infection veronika - Cool Mist Vaporizer veronika - Cough, Adult, Ltex-mc-Xejq veronika - Viral Respiratory Infection, Rfos-Ww-Mahe veronika - Cough, Adult [facility] Forms: - Medication Reconciliation Form [facility] - Antibiotic Education veronika - Prescription Opioid Use [facility] - Patient Portal Instructions [facility] - Leadership Thank You Letter [facility] Prescriptions: - Adalgisa-D 12 Hour 60-120 mg Oral Tablet Sustained Release 12 hr - take 1 tablet ORAL route every 12 hours As needed; 20 tablet; Refills: 0, [facility] Product Selection Permitted - Tessalon Perles 100 mg Oral capsule - take 2 capsule ORAL route every 8 hours As needed; 30 capsule; Refills: 0, [facility] Product Selection Permitted - Zithromax Z-Brian 250 mg Oral Tablet - take 1 tablet ORAL route as directed for 5 days Day 1 - take two (2) tablets veronika one time. Day 2, 3, 4 , 5 take one (1) tablet once daily.; 6 tablet; Refills: 0, Product Selection Permitted Signatures: Dispatcher [employer] Hung Lawrence MD MD cha Ayala, Heidy, RN RN ha1 Gustavo Guevara MD MD rt Potter, Christina cp4 Chaya Rodriguez RN iw
--- NOTE | 2024-09-16 07:38 | ER ---
Nurse's Notes [facility] Name: Twila Amor Age: 33 yrs Sex: Female : 1990 Arrival Date: 09/16/2024 Time: 05:36 Bed 13 Private MD: Diagnosis: Fever, unspecified;Acute upper respiratory infection, unspecified;Cough Presentation: 09/16 05:42 Chief complaint: Patient states: BODY CHILLS , HEADACHE, DRY COUGH, AND PAIN IN MY RIB ha1 CAGE WHEN BREATHING. 05:42 Coronavirus screen: Client denies travel out of the [place] in the last 14 days. Ebola ha1 Screen: No symptoms or risks identified at this time. Initial Sepsis Screen: Does the patient meet any 2 criteria? No. Patient's initial sepsis screen is negative. Does the patient have a suspected source of infection? No. Patient's initial sepsis screen is negative. Risk Assessment: Do you want to hurt yourself or someone else? Patient reports no desire to harm self or others. Onset of symptoms was September 16, 2024. 05:42 Method Of Arrival: Ambulatory ha1 05:42 Acuity: CLINT 3 ha1 Triage Assessment: 05:42 General: Appears uncomfortable, Behavior is cooperative. Pain: Complains of pain in ha1 HEADACHE AND RIB CAGE Pain currently is 8 out of 10 on a pain scale. Quality of pain is described as aching. Pain: Pain began 2-3 days ago. Also complains of no other associated symptoms. Neuro: Level of Consciousness is awake, alert, obeys commands, Oriented to person, place, time, situation. Cardiovascular: Patient's skin is warm and dry. Respiratory: Airway is patent Respiratory effort is even, unlabored, Respiratory pattern is regular, symmetrical. Historical: - Allergies: 06:08 No Known Allergies; ha1 - PMHx: 06:08 None; ha1 - PSHx: 06:08 None; ha1 - Immunization history:: Adult Immunizations up to date. - Infectious Disease History:: Denies. - Social history:: Smoking status: Patient denies any tobacco usage or history of. - Family history:: not pertinent. Screenin:[address] [facility] ED Fall Risk Assessment (Adult) History of falling in the last 3 months, cp4 including since admission No falls in past 3 months (0 pts) Confusion or Disorientation No (0 pts) Intoxicated or Sedated No (0 pts) Impaired Gait No (0 pts) Mobility Assist Device Used No (0 pt) Altered Elimination No (0 pt) Score/Fall Risk Level 0 - 2 = Low Risk Oriented to surroundings, Maintained a safe environment, Assessed \T\ reinforced patient's understanding of fall precautions, Hourly rounding (assess needs \T\ fall precautionary measures) done. Abuse screen: Denies threats or abuse. Denies injuries from another. Nutritional screening: No deficits noted. Tuberculosis screening: No symptoms or risk factors identified. Assessment: 06:12 General: Appears in no apparent distress. uncomfortable, Behavior is calm, cooperative, cp4 appropriate for age. Pain: Complains of pain in headache Pain currently is 7 out of 10 on a pain scale. Neuro: Level of Consciousness is awake, alert, obeys commands, Oriented to person, place, time, situation. Cardiovascular: Patient's skin is warm and dry. Rhythm is sinus tachycardia. Respiratory: Reports cough that is non-productive, Airway is patent Respiratory effort is even, unlabored, Breath sounds are clear bilaterally. GI: No signs and/or symptoms were reported involving the gastrointestinal system. : No signs and/or symptoms were reported regarding the genitourinary system. EENT: No signs and/or symptoms were reported regarding the EENT system. Derm: No signs and/or symptoms reported regarding the dermatologic system. Musculoskeletal: No signs and/or symptoms reported regarding the musculoskeletal system. Vital Signs: 05:42 BP 116 / 78; Pulse 118; Resp 19 S; Temp 99.8(O); Pulse Ox 97% on R/A; Weight 81.65 kg; ha1 Height 5 ft. 4 in. ; 06:47 BP 117 / 77; Pulse 86; Resp 18; Pulse Ox 97% ; cp4 07:56 BP 127 / 79; Pulse 84; Resp 16; Pulse Ox 99% on R/A; iw 05:42 Body Mass Index 30.90 (81.65 kg, 162.56 cm) ha1 ED Course: 05:39 Patient arrived in ED. gm2 05:40 Gustavo Guevara MD is Attending Physician. rt 05:47 Angelita Messer is Primary Nurse. cp4 06:08 Triage completed. ha1 06:12 XRAY Chest (1 view) In Process Unspecified. EDID 06:12 Bed in low position. Call light in reach. Side rails up X 1. cp4 06:12 No provider procedures requiring assistance completed. Initial lab(s) drawn, by hidanika sent to lab. EKG done, by ED staff, reviewed by Gustavo Guevara MD. Inserted saline lock: 22 gauge in right antecubital area, using aseptic technique. Blood collected. Flushed with 10 mL NS. 07:00 Arm band placed on right wrist. iw 07:29 Attending Physician role handed off by Gustavo Guevara MD [facility] 07:29 Hung Skaggs MD is Attending Physician. veronika 07:31 Primary Nurse role handed off by Angelita Messer iw 07:31 Chaya Rodriguez RN is Primary Nurse. iw 07:56 IV discontinued, intact, bleeding controlled, No redness/swelling at site. Pressure iw dressing applied. Administered Medications: 06:11 Drug: Ketorolac IVP 15 mg IVP once Route: IVP; Site: right antecubital; cp4 06:11 Drug: Acetaminophen PO 1000 mg PO once Route: PO; cp4 06:11 Drug: NS 0.9% IV 1000 ml IV at 1 bolus Per protocol; to be given as a bolus over 60 cp4 minutes Route: IV; Rate: 1 bolus; Site: right antecubital; 07:40 Follow up: IV Status: Completed infusion iw Medication: 06:12 VIS not applicable for this client. cp4 Outcome: 07:37 Discharge ordered by . [facility] 07:57 Discharged to home ambulatory, iw 07:57 Condition: good 07:57 Discharge instructions given to patient, Instructed on discharge instructions, follow up and referral plans. medication usage, Demonstrated understanding of instructions, follow-up care, medications, Prescriptions given X 3, 07:57 Patient left the ED. iw Signatures: Dispatcher [employer] [facility] Hung Skaggs MD MD cha Williams, Irene, RN RN iw Shannan Jordan RN RN ha1 Gustavo Guevara MD MD rt Angelita Messer cp4 Bonnie Walker 2
--- NOTE | 2024-09-16 08:32 | RAD REPORT ---
EXAMINATION: ONE VIEW CHEST XR CLINICAL INDICATION: COUGH TECHNIQUE: Frontal chest projection is submitted. Examination is limited by patient positioning and t echnique. COMPARISON: No prior exam. FINDINGS: Subtle opacity in the medial right lung base could indicate developing mild infiltrate/pneumonia. Vinny gs otherwise clear. The heart is upper limit of normal in size. No displaced fractures identified.
--- NOTE | 2024-09-17 12:10 | EKG ---
Test Date: 2024-09-16 Test Time: 06:08:12 Supervisor Evaporator: BRAIN MEASUREMENT RESULTS: Intervals: Rate: 114 MO: 136 QRSD: 76 QT: 314 QTc: 432 [place]: P: 33 MO: 136 QRS: 76 T: -14 INTERPRETIVE STATEMENTS: Sinus tachycardia Cannot rule out Inferior infarct, age undetermined Cannot rule out Anterior infarct, age undetermined Abnormal ECG No previous ECG available for comparison Electronically Signed On 09-17-24 12:07:44 CDT by Garrett Zavala
[2024-09-18 02:59] VITALS: TEMP 99.8
[2024-09-18 03:01] VITALS: BP 127/79; O2SAT 99
== END 2024-09-16 07:57 | disposition home or self-care (01) ==
LOC: ER 05:36
DX: J06.9 Acute upper respiratory infection, unspecified (principal); R05.9 Cough, unspecified; Z11.52 Encounter for screening for COVID-19
CPT/HCPCS: 96361; 93005; 85025; 80048; 36415; 80076; 84484; 71045; 96374; 99284; 87428; J7030